=== PATIENT | female | born 2000 | race Caucasian/White ===

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

== ENCOUNTER → 2020-09-19 | Outpatient (CLI) | payer OTHER ==
[~2020-09-19] MED LIST: IMIT100T PO; KEPP10002 PO; PEPC1TAB5 PO
== END ==
LOC: M LABSMTC 08:05
PROVIDERS: ATTEND Anesthesiology
DX: Z01.812 Encounter for preprocedural laboratory examination (principal); Z20.822 Contact with and (suspected) exposure to COVID-19

== ENCOUNTER 2020-09-24 12:53 | Day surgery (SDC) | payer OTHER ==
[~2020-09-24] VITALS: Ht 162.6 cm; Wt 88.0 kg
[~2020-09-24 12:53] MED LIST changes: +LIDOCAINE 2% 100MG/5ML SDV (FOR ANES.) As Ordered ONE; +NS 1,000 ML IV ONE; +fentaNYL 100 MCG/2 ML INJECTION (J3010) As Ordered ONE; +propofoL 200 MG/20 ML VIAL As Ordered ONE
--- OUTSIDE RECORDS SUMMARY | 2020-09-24 12:58 | CCD | Continuity of Care Document ---
Author Author Katelyn CABRERA Organization Unknown Address [address] [facility], [address] [place] [address] Phone [phone] Care Team Providers Care Skin Grader Name Role Phone Daniel Araiza M.D. AUTM [phone] [employer] AUTM [phone] Problems Description No Information Available Social History Type Date Description Comments Sex Unknown ETOH Use Denies alcohol use Tobacco Use Start: Unknown Non Smoker Allergies, Adverse Reactions, Alerts Active Allergies Reaction Severity Comments Date Augmentin 08/20/2020 Medications Active Medications SIG Qnty Indications Ordering Provide r Date Psyllium Fiber 0.52gm Capsules 1 capsule by mouth 1 to 2 times a day with meals and depending on symptoms adjust after 2 weeks 60caps Chidi Cabrera M.D. 2020 Keppra 1000mg Tablets 1tab po bid Unknown Famotidine 20mg Tablets 1t ab po qd 60tabs Unknown Sumatriptan Succinate 100mg Tablet s use as directed Unknown Immunizations Description No Information Available Vital Signs Date Vital Result Comment 08/20/2020 2:16pm BP Systolic 120 mmHg BP Diastolic 74 mmHg Height 64 inches 5'4" Weight 193.00 lb BMI (Body Mass Index) 33.1 kg/m2 [place] Body Weight 120 lb Weight 87.545 kg BSA (Body Surface Area) 1.93 m2 Results Description No Information Available Procedures Description No Information Available Medical Devices Description No Information Available Encounters Description No Information Available Assessments Date Code Description Provider 08/20/2020 R10.13 Epigastric pain Chidi Peguero ala, M.D. Plan of Treatment 08/20/2020 - Chidi Cabrera M.D.* R10.13 Epigastric pain * * Comments:* Possible differentials: Functional Status Description No Information Available Mental Status Description No Information Available Referrals Refer to Reason for Referral Status Appt Date Chidi Cabrera M.D. Left upper abd pain Scheduled 07/21/[address] [place] [address], [address] [place] [address] [phone]
--- OUTSIDE RECORDS SUMMARY | 2020-09-24 13:00 | CCD ---
Author Author [facility] Organization [facility] Address Unknown Phone Unavailable Care Team Providers Care Associate Designer Name Role Phone Eliot RIVAS MD Unavailable Unavailable Eliot RIVAS MD Unavailable Unavailable Eliot RIVAS MD Unavailable Unavailable Eliot RIVAS MD Unavailable Unavailable Eliot RIVAS MD Unavailable Unavailable ARASTUEliot MD Unavailable Unavailable ARASTUEliot MD Unavailable Unavailable ARASTU, Eliot MAHER MD Unavailable Unavailable ARASTU, Eliot MAHER MD Unavailable Unavailable ARASTU, Eliot MAHER MD Unavailable Unavailable ARASTU, Eliot MAHER MD Unavailable Unavailable ARASTUEliot MD Unavailable Unavailable ARASTU, Eliot MAHER MD Unavailable Unavailable ARASTU, Eliot MAHER MD Unavailable Unavailable ARASTU, Eliot MAHER MD Unavailable Unavailable ARASTU, Eliot MAHER MD Unavailable Unavailable ARASTU, Eliot MAHER MD Unavailable Unavailable ARASTU, Eliot MAHER MD Unavailable Unavailable ARASTU, Eliot MAHER MD Unavailable Unavailable ARASTU, Eliot MAHER MD Unavailable Unavailable ARASTU, Eliot MAHER MD Unavailable Unavailable ARASTU, Eliot MAHER MD Unavailable Unavailable ARASTUEliot MD Unavailable Unavailable ARASTU, Eliot MAHER MD Unavailable Unavailable ARASTU, Eliot MAHER MD Unavailable Unavailable ARASTU, Eliot MAHER MD Unavailable Unavailable ARASTU, Eliot MAHER MD Unavailable Unavailable ARASTUEliot MD Unavailable Unavailable ARASTUEliot MD Unavailable Unavailable ARASTUEliot MD Unavailable Unavailable ARASTU, Eliot MAHER MD Unavailable Unavailable ARASTU, Eliot MAHER MD Unavailable Unavailable ARASTUEliot MD Unavailable Unavailable ARASTUEliot MD Unavailable Unavailable ARASTUEliot MD Unavailable Unavailable ARASTUEliot MD Unavailable Unavailable ARASTUEliot MD Unavailable Unavailable ARASTUEliot MD Unavailable Unavailable ARASTUEliot MD Unavailable Unavailable ARASTUEliot MD Unavailable Unavailable ARASTUEliot MD Unavailable Unavailable ARASTUEliot MD Unavailable Unavailable ARASTUEliot MD Unavailable Unavailable ARASTUEliot MD Unavailable Unavailable ARASTUEliot MD Unavailable Unavailable ARASTUEliot MD Unavailable Unavailable ARASTEliot English MD Unavailable Unavailable ARASTUEliot MD Unavailable Unavailable Adams LOMELI MD Unavailable Unavailable Adams LOMELI MD Unavailable Unavailable PARSHALL, A BLAIRE MD Unavailable Unavailable PARSHALL, A BLAIRE MD Unavailable Unavailable PARSHALL, A BLAIRE MD Unavailable Unavailable PARSHALL, A BLAIRE MD Unavailable Unavailable PARSHALL, A BLAIRE MD Unavailable Unavailable PARSHALL, A BLAIRE MD Unavailable Unavailable PARSHALL, A BLAIRE MD Unavailable Unavailable PARSHALL, A BLAIRE MD Unavailable Unavailable PARSHALL, A BLAIRE MD Unavailable Unavailable PARSHALL, A BLAIRE MD Unavailable Unavailable PARSHALL, A BLAIRE MD Unavailable Unavailable PARSHALL, A BLAIRE MD Unavailable Unavailable PARSHALL, A BLAIRE MD Unavailable Unavailable PARSHALL, A BLAIRE MD Unavailable Unavailable PARSHALL, A BLAIRE MD Unavailable Unavailable PARSHALL, A BLAIRE MD Unavailable Unavailable PARSHALL, A BLAIRE MD Unavailable Unavailable PARSHALL, A BLAIRE MD Unavailable Unavailable PARSHALL, A BLAIRE MD Unavailable Unavailable PARSHALL, A BLAIRE MD Unavailable Unavailable PARSHALL, A BLAIRE MD Unavailable Unavailable PARSHALL, A BLAIRE MD Unavailable Unavailable PARSHALL, A BLAIRE MD Unavailable Unavailable PARSHALL, A BLAIRE MD Unavailable Unavailable PARSHALL, A BLAIRE MD Unavailable Unavailable PARSHALL, A BLAIRE MD Unavailable Unavailable Jeter, Rody Raquel PA-C Unavailable Unavailable Jeter, Rody Raquel PA-C Unavailable Unavailable Jeter, Rody Raquel PA-C Unavailable Unavailable Jeter, Rody Raquel PA-C Unavailable Unavailable Jeter, Rody Raquel PA-C Unavailable Unavailable Jeter, Rody Raquel PA-C Unavailable Unavailable Jeter, Rody Raquel PA-C Unavailable Unavailable Jeter, Rody Raquel PA-C Unavailable Unavailable Jeter, Rody Raquel PA-C Unavailable Unavailable Jeter, Rody Raquel PA-C Unavailable Unavailable Jeter, Rody Raquel PA-C Unavailable Unavailable Jeter, Rody Raquel PA-C Unavailable Unavailable Jeter, Rody Raquel PA-C Unavailable Unavailable Jeter, Rody Raquel PA-C Unavailable Unavailable Jeter, Rody Raquel PA-C Unavailable Unavailable Jeter, Rody Raquel PA-C Unavailable Unavailable Jeter, Rody Raquel PA-C Unavailable Unavailable Jeter, Rody Raquel PA-C Unavailable Unavailable Jeter, Rody Raquel PA-C Unavailable Unavailable Jeter, Rody Raquel PA-C Unavailable Unavailable Jeter, Rody Raquel PA-C Unavailable Unavailable Jeter, Rody Raquel PA-C Unavailable Unavailable Jeter, Rody Raquel PA-C Unavailable Unavailable Jaja High NP Unavailable Unavailable Stefan Sierra MD Unavailable Unavailable Stefan Sierra MD Unavailable Unavailable Stefan Sierar MD Unavailable Unavailable Mariela, Stefan Rascon MD Unavailable Unavailable Stefan Sierra MD Unavailable Unavailable Stefan Sierra MD Unavailable Unavailable MarielaStefan walker MD Unavailable Unavailable MarielaStefan walker MD Unavailable Unavailable MarielaStefan walker MD Unavailable Unavailable Mariela, Stefan Rascon MD Unavailable Unavailable Mariela, Stefan Rascon MD Unavailable Unavailable Breslau, Nilo DO Unavailable Unavailable Breslau, Nilo DO Unavailable Unavailable Breslau, Nilo DO Unavailable Unavailable Breslau, Nilo DO Unavailable Unavailable Breslau, Nilo DO Unavailable Unavailable Breslau, Nilo DO Unavailable Unavailable Breslau, Nilo DO Unavailable Unavailable Breslau, Nilo DO Unavailable Unavailable Breslau, Nilo DO Unavailable Unavailable Breslau, Nilo DO Unavailable Unavailable Breslau, Nilo DO Unavailable Unavailable Breslau, Nilo DO Unavailable Unavailable Breslau, Nilo DO Unavailable Unavailable Breslau, Nilo DO Unavailable Unavailable Breslau, Nilo DO Unavailable Unavailable Breslau, Nilo DO Unavailable Unavailable Breslau, Nilo DO Unavailable Unavailable Breslau, Nilo DO Unavailable Unavailable Breslau, Nilo DO Unavailable Unavailable Breslau, Nilo DO Unavailable Unavailable Breslau, Nilo DO Unavailable Unavailable Breslau, Nilo DO Unavailable Unavailable Breslau, Nilo DO Unavailable Unavailable Jone, D Arndy PA Unavailable Unavailable Jone, D Randy PA Unavailable Unavailable Jone, D Randy PA Unavailable Unavailable Jone, D Randy PA Unavailable Unavailable Jone, D Randy PA Unavailable Unavailable Jone, D Randy PA Unavailable Unavailable Jone, D Randy PA Unavailable Unavailable Jone, D Randy PA Unavailable Unavailable Jone, D Randy PA Unavailable Unavailable Jone, D Randy PA Unavailable Unavailable Jone, D Randy PA Unavailable Unavailable Jone, D Randy PA Unavailable Unavailable Jone, D Randy PA Unavailable Unavailable Jone, D Randy PA Unavailable Unavailable Jone, D Randy PA Unavailable Unavailable Jone, D Randy PA Unavailable Unavailable Jone, D Randy PA Unavailable Unavailable Jone, D Randy PA Unavailable Unavailable Jone, D Randy PA Unavailable Unavailable Jone, D Randy PA Unavailable Unavailable Jone, D Randy PA Unavailable Unavailable Doctor Provided, Family PHYS No Family Unavailable U navailable Kiya Jerez MD Unavailable Unavailable Kiya Jerez MD Unavailable Unavailable Kiya Jerez MD Unavailable Unavailable Kiya Jerez MD Unavailable Unavailable Kiya Jerez MD Unavailable Unavailable Kiya Jerez MD Unavailable Unavailable Kiya Jerez MD Unavailable Unavailable Kiya Jerez MD Unavailable Unavailable Kiya Jerez MD Unavailable Unavailable Kiya Jerez MD Unavailable Unavailable Kiya Jerez MD Unavailable Unavailable Kiya Jerez MD Unavailable Unavailable Kiya Jerez MD Unavailable Unavailable Kiya Jerez MD Unavailable Unavailable Kiya Jerez MD Unavailable Unavailable Kiya Jerez MD Unavailable Unavailable Kiya Jerez MD Unavailable Unavailable Kiya Jerez MD Unavailable Unavailable Kiya Jerez MD Unavailable Unavailable Kiya Jerez MD Unavailable Unavailable Kiya Jerez MD Unavailable Unavailable Kiya Jerez MD Unavailable Unavailable Kiya Jerez MD Unavailable Unavailable Kiya Jerez MD Unavailable Unavailable Kiya Jerez MD Unavailable Unavailable Kiya Jerez MD Unavailable Unavailable Kiya Jerez MD Unavailable Unavailable Kiya Jerez MD Unavailable Unavailable Kiya Jerez MD Unavailable Unavailable Kiya Jerez MD Unavailable Unavailable Kiya Jerez MD Unavailable Unavailable Kiya Jerez MD Unavailable Unavailable Kiya Jerez MD Unavailable Unavailable Kiya Jerez MD Unavailable Unavailable Kiya Jerez MD Unavailable Unavailable Kiya Jerez MD Unavailable Unavailable Kiya Jerez MD Unavailable Unavailable Kiya Jerez MD Unavailable Unavailable Kiya Jerez MD Unavailable Unavailable Kiya Jerez MD Unavailable Unavailable Estee Kearney Unavailable Unavailable of L.C[facility] Medicine Occupation Unavailable Unavailable Eliot RIVAS MD Unavailable Unavailable Eliot RIVAS MD Unavailable Unavailable Eliot RIVAS MD Unavailable Unavailable Eliot RIVAS MD Unavailable Unavailable Eliot RIVAS MD Unavailable Unavailable ARASTUEliot MD Unavailable Unavailable ARASTUEliot MD Unavailable Unavailable ARASTUEliot MD Unavailable Unavailable ARASTU, Eliot MAHER MD Unavailable Unavailable ARASTU, Eliot MAHER MD Unavailable Unavailable ARASTU, Eliot MAHER MD Unavailable Unavailable ARASTUEliot MD Unavailable Unavailable ARASTUEliot MD Unavailable Unavailable ARASTU, Eliot MAHER MD Unavailable Unavailable ARASTU, Eliot MAHER MD Unavailable Unavailable ARASTU, Eliot MAHER MD Unavailable Unavailable ARASTU, Eliot MAHER MD Unavailable Unavailable ARASTUEliot MD Unavailable Unavailable ARASTU, Eliot MAHER MD Unavailable Unavailable ARASTU, lEiot MAHER MD Unavailable Unavailable ARASTU, Eliot MAHER MD Unavailable Unavailable ARASTU, Eliot MAHER MD Unavailable Unavailable ARASTU, Eliot MAHER MD Unavailable Unavailable ARASTU, Eliot MAHER MD Unavailable Unavailable ARASTUEliot MD Unavailable Unavailable ARASTU, Eliot MAHER MD Unavailable Unavailable ARASTU, Eliot MAHER MD Unavailable Unavailable ARASTUEliot MD Unavailable Unavailable ARASTUEliot MD Unavailable Unavailable ARASTUEliot MD Unavailable Unavailable ARASTUEliot MD Unavailable Unavailable ARASTU, Eliot MAHER MD Unavailable Unavailable ARASTU, Eliot MAHER MD Unavailable Unavailable ARASTUEliot MD Unavailable Unavailable ARASTUEliot MD Unavailable Unavailable ARASTUEliot MD Unavailable Unavailable ARASTUEliot MD Unavailable Unavailable ARASTUEliot MD Unavailable Unavailable ARASTUEliot MD Unavailable Unavailable ARASTUEliot MD Unavailable Unavailable ARASTUEliot MD Unavailable Unavailable ARASTUEliot MD Unavailable Unavailable ARASTU, Eliot MAHER MD Unavailable Unavailable ARASTUEliot MD Unavailable Unavailable ARASTUEliot MD Unavailable Unavailable ARASTUEliot MD Unavailable Unavailable ARASTUEliot MD Unavailable Unavailable ARASTUEliot MD Unavailable Unavailable Vinod Arroyo MD Unavailable Unavailable Beatriz Cobb Unavailable Unavailable Cobb, Beatriz Jessica PA Unavailable Unavailable Cobb, Beatriz Jessica PA Unavailable Unavailable Cobb, Beatriz Jessica PA Unavailable Unavailable Cobb, Beatriz Jessica PA Unavailable Unavailable Cobb, Beatriz Jessica PA Unavailable Unavailable Cobb, Beatriz Jessica PA Unavailable Unavailable Cobb, Beatriz Jessica PA Unavailable Unavailable Cobb, Beatriz Jessica PA Unavailable Unavailable Cobb, Beatriz Jessica PA Unavailable Unavailable SCHILLING, NEW MELVI MD Unavailable Unavailable SCHILLING, NEW MELVI MD Unavailable Unavailable SCHILLING, NEW MELVI MD Unavailable Unavailable SCHILLING, NEW MELVI MD Unavailable Unavailable SCHILLING, NEW MELVI MD Unavailable Unavailable SCHILLING, NEW MELVI MD Unavailable Unavailable SCHILLING, NEW MELVI MD Unavailable Unavailable SCHILLING, NEW MELVI MD Unavailable Unavailable SCHILLING, NEW MELVI MD Unavailable Unavailable SCHILLING, NEW MELVI MD Unavailable Unavailable SCHILLING, NEW MELVI MD Unavailable Unavailable SCHILLING, NEW MELVI MD Unavailable Unavailable SCHILLING, NEW MELVI MD Unavailable Unavailable SCHILLING, NEW MELVI MD Unavailable Unavailable SCHILLING, NEW MELVI MD Unavailable Unavailable SCHILLING, NEW MELVI MD Unavailable Unavailable SCHILLING, NEW MELVI MD Unavailable Unavailable SCHILLING, NEW MELVI MD Unavailable Unavailable Rangel Porter MD Unavailable Unavailable Re-disclosure Warning The records that you are about to access may contain information from federally-assisted alcohol or drug abuse programs. If such information is present, then the following federally mandated warning applies: This information has been disclosed to you from records protected by federal confidentiality rules (42 CFR part 2). The federal rules prohibit you from making any further disclosure of this information unless further disclosure is expressly permitted by the written consent of the person to whom it pertains or as otherwise permitted by 42 CFR part 2. A general authorization for the release of medical or other information is NOT sufficient for this purpose. The Federal rules restrict any use of the information to criminally investigate or prosecute any alcohol or drug abuse patient.The records that you are about to access may contain highly sensitive health information, the redisclosure of which is protected by Article 27-F of the [facility] Public Health law. If you continue you may have access to information: Regarding HIV / AIDS; Provided by facilities licensed or operated by the [facility] Office of Mental Health; or Provided by the [facility] Office for People With Developmental Disabilities. If such information is present, then the following [facility] mandated warning applies: This information has been disclosed to you from confidential records which are protected by state law. State law prohibits you from making any further disclosure of this information without the specific written consent of the person to whom it pertains, or as otherwise permitted by law. Any unauthorized further disclosure in violation of state law may result in a fine or mcfp sentence or both. A general authorization for the release of medical or other information is NOT sufficient authorization for further disc losure. Allergies and Adverse Reactions Type Description Substance Reaction Status Data Source(s ) Drug allergy amoxicillin Amoxicillin HIVES MO [facility] Drug allergy azithromycin Azithromycin Hives MO [facility] Family History Family Member Name Family Member Gender Family Member Status Date o f Status Description Data Source(s) Unknown Condition [facility] Unknown Condition [facility] Unknown Condition [facility] Unknown Condition [facility] Unknown Condition [facility] Unknown Condition [facility] Unknown [facility] Unknown [facility] Unknown [facility] Unknown [facility] Unknown [facility] Unknown [facility] Unknown [facility] Unknown [facility] Unknown [facility] Unknown [facility] Unknown [facility] Unknown Condition [facility] Unknown Condition [facility] Unknown Condition [facility] Unknown Condition [facility] Unknown Condition [facility] Hospital Encounters Encounter Providers Location Date Indications Data Source(s ) Outpatient Attender: 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 09/01/2020 1 2:00:00 AM EST URBINA/PPD/RESP [facility] URBINA/PPD/RESP Outpatient Attender: Ella Jerez MD 07/20/2020 09:35:[address] [facility] CLINIC Attender: GUNNAR HIGUERA.ES-CARMELB.PEDRO LUIS 06/25/2020 12:00: 00 AM EST [facility] Outpatient Attender: Estee PALENCIA 06/02/2020 12:02:06 AM ED T [facility] Outpatient Attender: MELVI SCHILLING MD 04/01/2020 0 7:47:00 AM EDT F/U SPLEEN,ABCESS OF SPLEEN [facility] F/U SPLEEN,ABCESS [facility] SPLEEN Outpatient Attender: Rangel Porter MDReferrer: Jaja thompson NP 03/17/2020 10:15:00 AM EDT - 03/17/2020 10:53:00 AM EDT [facility] Outpatient Attender: MELVI SCHILLING MD 02/23/2020 1 1:06:[address] [facility] SPLENOMEGALY Outpatient Attender: Rangel Porter MDReferrer: Jaja thompson NP 02/12/2020 09:19:00 AM EDT - 02/12/2020 09:55:00 AM EDT [facility] Outpatient Attender: Rangel Porter MDReferrer: Jaja thompson NP 01/22/2020 09:42:00 AM EDT - 01/22/2020 10:36:00 AM EDT [facility] Outpatient Attender: Rangel Porter MD 01/16/2020 02:34:[address] [facility] PAIN Outpatient Attender: Rangel Porter MDReferrer: No Family Doctor Provided 01/15/2020 09:02:00 AM EDT - 01/15/2020 09:56:[address] [facility] Outpatient Attender: Rangel Porter MD 01/14/2020 0 1:34:00 PM EDT W W/O, LOW ABD PAIN, R/O ABCESS @ INCISION [facility] W W/O, LOW ABD PAIN, R/O ABCESS @ INCI [facility] Outpatient Attender: Rangel Porter MDReferrer: Jaja thompson NP 01/13/2020 01:41:00 PM EDT - 01/13/2020 03:07:00 PM EDT [facility] Outpatient Attender: Rangel Porter MD 01/09/2020 02:00:[address] [facility] R19.7 Outpatient Attender: Rangel Porter MDReferrer: Jaja thompson NP 01/09/2020 11:05:00 AM EDT - 01/09/2020 12:11:00 PM EDT [facility] Outpatient Attender: Rangel Porter MDReferrer: Jaja thompson NP 01/07/2020 03:09:00 PM EDT - 01/07/2020 04:10:00 PM EDT [facility] Emergency Attender: Vinod Arroyo MD Referrer: Rangel Porter MDConsultant: Rangel Porter MD 01/05/2020 04:12:00 PM EDT - 01/05/2020 05:07:00 PM EDT RE-CHECK [facility] RE-CHECK Patient discharged. Emergency Attender: Vinod Arroyo MDConsultant: Rangel Porter MD 01/04/2020 02:36:00 PM EDT - 01/04/2020 05:45:00 PM EDT INFECTION FROM SURGERY [facility] INFECTION FROM SURGERY Patient discharged. Outpatient Attender: Rangel Porter MDReferrer: Jaja thompson NP 01/02/2020 09:10:00 AM EDT - 01/02/2020 09:56:00 AM EDT [facility] Emergency Attender: Abiodun Sierra MD 12/30/19 20 12:01:00 AM EDT - 12/30/2019 02:31:00 AM [facility] Patient discharged. Outpatient Attender: Rangel Porter MD 06:16:00 AM EDT - 12/24/2019 03:10:00 PM EDT R10.2/DX LAPROSCOPY [id number] [facility] R10.2/DX LAPROSCOPY [id number] Patient discharged. Outpatient Attender: Jaja High NPReferrer: Jaja downs NP 12/23/2019 10:46:00 AM EDT - 12/23/2019 11:21:00 AM EDT [facility] Outpatient Attender: Rangel Porter MDConsultant: GUNNAR FLORES MD 12/22/2019 08:06:00 AM EDT R10.2,G40.309 [facility] R10.2,G40.309 Outpatient Attender: Rangel Porter MD 12/21/2019 08:25:[address] [facility] Z01.818 CLINIC SDB.ES-SDB.HM 12/19/2019 08:29:46 AM EDT [facility] CLINIC Attender: GUNNAR HIGUERA.ES-SDB.NS 12/16/2019 12:00: 00 AM EDT [facility] Outpatient Attender: Rangel Porter MDReferrer: Jaja thompson NP 12/03/2019 10:10:00 AM EDT - 12/03/2019 10:45:00 AM EDT [facility] Outpatient Attender: Rangel Porter MD 10/28/2019 1 1:29:00 AM EDT [address] PAIN [facility] PELVIC PAIN Outpatient Attender: Rangel Porter MD 10/16/2019 01:45:[address] [facility] R10.2 Outpatient Attender: Rangel Porter MDReferrer: Jaja thompson NP 10/16/2019 09:43:00 AM EST - 10/16/2019 10:33:00 AM EST [facility] Outpatient<td ID="encounterTypeDescripti onID0">urgent visit</td><td>Raquel Jeter RPA</td><td>[facility]</td><td>10/13/2019</td><td><content ID="encounterDiagnosisID0-0">Temporomandibular Joint Disorder</content></td> [facility] 10/13/2019 10:20:00 AM EST - 10/13/2019 11:32:00 AM EST Temporomandibular Joint Disorder [facility] ([facility]) Temporomandibular Joint Disorder Emergency Attender: BLAIRE LOMELI MD 10/08 03:01:00 PM EST - 10/08/2019 03:41:00 PM EST HEADACHES, LIGHT SENSITIVITY [facility] HEADACHES, LIGHT SENSITIVITY Patient discharged. Outpatient Attender: Jaja High NP 09/23/2019 06:33:[address] [facility] R10.2 Outpatient Attender: Rangel PEREZeferrer: Jaja thompson NP 09/23/2019 03:09:00 PM EST - 09/23/2019 04:14:00 PM EST [facility] Outpatient<td ID="encounterTypeDescripti onID1">urgent visit</td><td>Randy Becerril PA-C</td><td>[facility]</td><td>09/18/2019</td><td><content ID="encounterDiagnosisID1-0">Influenza</content></td> Attender: Randy MORRISON [facility] 09/18/2019 04:42:00 PM EST - 09/18/2019 05:20:00 PM ES T InfluenzaInfluenza [facility] ([facility]) Influenza Influenza Outpatient Attender: Nilo Prater DO 09/16/2019 12:59:00 PM EST [address] PAIN [facility] PELVIC PAIN Outpatient Attender: Nilo Mirzaerrer: Jaja white NP 09/05/2019 03:09:00 PM EST - 09/05/2019 03:53:00 PM EST [facility] Outpatient Attender: Jessica Cobb PAReferrer: Jaja white NP 08/11/2019 01:49:00 PM EST - 08/11/2019 02:09:00 PM EST [facility] Outpatient Attender: Occupation of [employer] 08/11/2019 11:02:0 0 AM EST PRE [facility]PL[facility] PRE EMPLOY Outpatient Attender: Occupation of [employer] 07/02/2019 12:00:0 0 AM EST [facility] PRE EMPLOY Medications Medication Brand Name Start Date Product Form Dose Route Admi nistrative Instructions Pharmacy Instructions Status Indications Reaction Description Data Source(s) Psyllium 520 MG Oral Capsule Psyllium Fiber 08/20/2020 12:00:00 AM EST ORAL active [facility] ([facility], ) 1,000 mg 07/12/2020 12:00:00 AM EST tablet 60 TAKE ONE TABLET BY MOUTH TWICE A DAY TAKE ONE TABLET BY MOUTH TWICE A DAY SOLD: 07/13/2020 [facility] 20 mg 07/12/2020 12:00:00 AM EST tablet 60 TAKE ONE TABLET BY MOUTH TWICE A DAY TAKE ONE TABLET BY MOUTH TWICE A DAY SOLD: 07/13/2020 [facility] 10 mg 07/12/2020 12:00:00 AM EST tablet 10 TAKE ONE TABLET BY MOUTH NEEDED MAXIMUM DAILY DOSE = ONE TABLET TAKE ONE TABLET BY MOUTH NEEDED MAXIMUM DAILY DOSE = ONE TABLET SOLD: 07/13/2020 [facility] 20 mg 07/12/2020 12:00:00 AM EST tablet 30 TAKE ONE TABLET BY MOUTH EVERY DAY TAKE ONE TABLET BY MOUTH EVERY DAY SOLD: 07/13/2020 [facility] Fluconazole 150 MG Oral Tablet Fluconazole 01/15/2020 09:48:34 AM EDT 150 MG completed [facility] Fluconazole 150 MG Oral Tablet Fluconazole 01/15/2020 09:48:34 AM EDT 150 MG completed [facility] Fluconazole 150 MG Oral Tablet Fluconazole 01/15/2020 09:48:34 AM EDT 150 MG completed [facility] Fluconazole 150 MG Oral Tablet Fluconazole 01/15/2020 09:48:34 AM EDT 150 MG active [facility] Clotrimazole 10 MG Oral Lozenge Clotrimazole 01/15/2020 09:43:32 AM E DT 10 MG completed [facility] Clotrimazole 10 MG Oral Lozenge Clotrimazole 01/15/2020 09:43:32 AM E DT 10 MG completed [facility] Clotrimazole 10 MG Oral Lozenge Clotrimazole 01/15/2020 09:43:32 AM E DT 10 MG completed [facility] Clotrimazole 10 MG Oral Lozenge Clotrimazole 01/15/2020 09:43:32 AM E DT 10 MG completed [facility] 10 mg 01/15/2020 12:00:00 AM EDT claudia 25 DISSOLVE 1 TABLET IN MOUTH FIVE TIMES A DAILY FOR 5 DAYS FOR THRUSH DISSOLVE 1 TABLET IN MOUTH FIVE TIMES A DAILY FOR 5 DAYS FOR THRUSH SOLD: 01/16/2020 [facility] Vancomycin 125 MG Oral Capsule Vancomycin 01/09/2020 12:04:19 PM EDT 125 MG completed [facility] Vancomycin 125 MG Oral Capsule Vancomycin 01/09/2020 12:04:19 PM EDT 125 MG completed [facility] Vancomycin 125 MG Oral Capsule Vancomycin 01/09/2020 12:04:19 PM EDT 125 MG completed [facility] Vancomycin 125 MG Oral Capsule Vancomycin 01/09/2020 12:04:19 PM EDT 125 MG completed [facility] Vancomycin 125 MG Oral Capsule Vancomycin 01/09/2020 12:04:19 PM EDT 125 MG completed [facility] Vancomycin 125 MG Oral Capsule Vancomycin 01/09/2020 12:04:19 PM EDT 125 MG [facility] 125 mg 01/09/2020 12:00:00 AM EDT capsule 40 TAKE ONE CAPSULE BY MOUTH FOUR TIMES A DAY FOR 10 DAYS TAKE ONE CAPSULE BY MOUTH FOUR TIMES A DAY FOR 10 DAYS SOLD: 01/09/2020 [facility] Levofloxacin 750 MG Oral Tablet Levofloxacin 01/07/2020 03:51:42 PM EDT 750 MG completed [facility] Levofloxacin 750 MG Oral Tablet Levofloxacin 01/07/2020 03:51:42 PM EDT 750 MG [facility] Levofloxacin 750 MG Oral Tablet Levofloxacin 01/07/2020 03:51:42 PM EDT 750 MG [facility] Levofloxacin 750 MG Oral Tablet Levofloxacin 01/07/2020 03:51:42 PM EDT 750 MG active [facility] Levofloxacin 750 MG Oral Tablet Levofloxacin 01/07/2020 03:51:42 PM EDT 750 MG [facility] Levofloxacin 750 MG Oral Tablet Levofloxacin 01/07/2020 03:51:42 PM EDT 750 MG active [facility] Levofloxacin 750 MG Oral Tablet Levofloxacin 01/07/2020 03:51:42 PM EDT 750 MG [facility] 750 mg 01/07/2020 12:00:00 AM EDT tablet 14 TAKE 1 TABLET BY MOUTH EVERY 24 HOURS FOR 14 DAYS FOR MRSA TAKE 1 TABLET BY MOUTH EVERY 24 HOURS FO R 14 DAYS FOR MRSA SOLD: 01/07/2020 [facility] 300 mg 01/05/2020 12:00:00 AM EDT capsule 84 TAKE TWO CAPSULES BY MOUTH THREE TIMES A DAY FOR 14 DAYS TAKE TWO CAPSULES BY MOUTH THREE TIMES A DAY FOR 14 DAYS SOLD: 01/06/2020 [facility] Clindamycin 300 MG Oral Capsule Clindamycin Hcl Clindamycin Hcl 01/04/2020 05:13:05 PM EDT [address] [facility] Clindamycin 300 MG Oral Capsule Clindamycin Hcl Clindamycin Hcl 01/04/2020 05:13:05 PM EDT [address] [facility] Clindamycin 300 MG Oral Capsule Clindamycin Hcl Clindamycin Hcl 01/04/2020 05:13:05 PM EDT [address] [facility] Clindamycin 300 MG Oral Capsule Clindamycin Hcl Clindamycin Hcl 01/04/2020 05:13:05 PM EDT 600 MG active [facility] Clindamycin 300 MG Oral Capsule Clindamycin Hcl Clindamycin Hcl 01/04/2020 05:13:05 PM EDT [address] [facility] Clindamycin 300 MG Oral Capsule Clindamycin Hcl Clindamycin Hcl 01/04/2020 05:13:05 PM EDT [address] [facility] Clindamycin 300 MG Oral Capsule Clindamycin Hcl Clindamycin Hcl 01/04/2020 05:13:05 PM EDT [address] [facility] Clindamycin 300 MG Oral Capsule Clindamycin Hcl Clindamycin Hcl 01/04/2020 05:13:05 PM EDT 600 MG active [facility] Clindamycin 300 MG Oral Capsule Clindamycin Hcl Clindamycin Hcl 01/04/2020 05:13:05 PM EDT [address] [facility] Fluconazole 150 MG Oral Tablet Fluconazole 01/02/2020 09:52:36 AM EDT 150 MG active [facility] Fluconazole 150 MG Oral Tablet Fluconazole 01/02/2020 09:52:36 AM EDT 150 MG active [facility] Fluconazole 150 MG Oral Tablet Fluconazole 01/02/2020 09:52:36 AM EDT 150 MG active [facility] Fluconazole 150 MG Oral Tablet Fluconazole 01/02/2020 09:52:36 AM EDT 150 MG completed [facility] Fluconazole 150 MG Oral Tablet Fluconazole 01/02/2020 09:52:36 AM EDT 150 MG completed [facility] Fluconazole 150 MG Oral Tablet Fluconazole 01/02/2020 09:52:36 AM EDT 150 MG active [facility] Fluconazole 150 MG Oral Tablet Fluconazole 01/02/2020 09:52:36 AM EDT 150 MG active [facility] Fluconazole 150 MG Oral Tablet Fluconazole 01/02/2020 09:52:36 AM EDT 150 MG completed [facility] Fluconazole 150 MG Oral Tablet Fluconazole 01/02/2020 09:52:36 AM EDT 150 MG completed [facility] Fluconazole 150 MG Oral Tablet Fluconazole 01/02/2020 09:52:36 AM EDT 150 MG completed [facility] Metronidazole 500 MG Oral Tablet Metronidazole 01/02/2020 09:51:45 AM EDT 500 MG completed [facility] Metronidazole 500 MG Oral Tablet Metronidazole 01/02/2020 09:51:45 AM EDT 500 MG completed [facility] Metronidazole 500 MG Oral Tablet Metronidazole 01/02/2020 09:51:45 AM EDT 500 MG completed [facility] Metronidazole 500 MG Oral Tablet Metronidazole 01/02/2020 09:51:45 AM EDT 500 MG active [facility] Metronidazole 500 MG Oral Tablet Metronidazole 01/02/2020 09:51:45 AM EDT 500 MG active [facility] Metronidazole 500 MG Oral Tablet Metronidazole 01/02/2020 09:51:45 AM EDT 500 MG completed [facility] Metronidazole 500 MG Oral Tablet Metronidazole 01/02/2020 09:51:45 AM EDT 500 MG completed [facility] Metronidazole 500 MG Oral Tablet Metronidazole 01/02/2020 09:51:45 AM EDT 500 MG completed [facility] Metronidazole 500 MG Oral Tablet Metronidazole 01/02/2020 09:51:45 AM EDT 500 MG completed [facility] Metronidazole 500 MG Oral Tablet Metronidazole 01/02/2020 09:51:45 AM EDT 500 MG completed [facility] Sulfamethoxazole 800 MG / Trimethoprim 1 60 MG Oral Tablet Sulfamethoxazole-Trimethoprim Sulfamethoxazole-Trimethoprim 01/02/2020 09:51:44 AM EDT 1 TAB completed [facility] Sulfamethoxazole 800 MG / Trimethoprim 1 60 MG Oral Tablet Sulfamethoxazole-Trimethoprim Sulfamethoxazole-Trimethoprim 01/02/2020 09:51:44 AM EDT 1 TAB completed [facility] Sulfamethoxazole 800 MG / Trimethoprim 1 60 MG Oral Tablet Sulfamethoxazole-Trimethoprim Sulfamethoxazole-Trimethoprim 01/02/2020 09:51:44 AM EDT 1 TAB completed [facility] Sulfamethoxazole 800 MG / Trimethoprim 1 60 MG Oral Tablet Sulfamethoxazole- Trimethoprim (Bactrim Ds) 800-160 mg tablet Sulfamethoxazole-Trimethoprim (Bactrim Ds) 800-160 mg tablet 01/02/2020 09:51:44 AM EDT 1 TAB completed [facility] Sulfamethoxazole 800 MG / Trimethoprim 1 60 MG Oral Tablet Sulfamethoxazole-Trimethoprim Sulfamethoxazole-Trimethoprim 01/02/2020 09:51:44 AM EDT 1 TAB completed [facility] Sulfamethoxazole 800 MG / Trimethoprim 1 60 MG Oral Tablet Sulfamethoxazole-Trimethoprim Sulfamethoxazole-Trimethoprim 01/02/2020 09:51:44 AM EDT 1 TAB active [facility] Sulfamethoxazole 800 MG / Trimethoprim 1 60 MG Oral Tablet Sulfamethoxazole-Trimethoprim Sulfamethoxazole-Trimethoprim 01/02/2020 09:51:44 AM EDT 1 TAB active [facility] Sulfamethoxazole 800 MG / Trimethoprim 1 60 MG Oral Tablet Sulfamethoxazole-Trimethoprim Sulfamethoxazole-Trimethoprim 01/02/2020 09:51:44 AM EDT 1 TAB completed [facility] Sulfamethoxazole 800 MG / Trimethoprim 1 60 MG Oral Tablet Sulfamethoxazole-Trimethoprim Sulfamethoxazole-Trimethoprim 01/02/2020 09:51:44 AM EDT 1 TAB completed [facility] Sulfamethoxazole 800 MG / Trimethoprim 1 60 MG Oral Tablet Sulfamethoxazole- Trimethoprim (Bactrim Ds) 800-160 mg tablet Sulfamethoxazole-Trimethoprim (Bactrim Ds) 800-160 mg tablet 01/02/2020 09:51:44 AM EDT 1 TAB completed [facility] 500 mg 01/02/2020 12:00:00 AM EDT tablet 28 TAKE ONE TABLET BY MOUTH TWICE A DAY FOR 14 DAYS TAKE ONE TABLET BY MOUTH TWICE A DAY FOR 14 DAYS SOLD: 01/02/2020 [facility] 150 mg 01/02/2020 12:00:00 AM EDT tablet 4 TAKE 1 TABLET BY MOUTH EVERY WEEK FOR 4 WEEKS FOR YEAST TAKE 1 TABLET BY MOUTH EVERY WEEK FOR 4 WEEKS FOR YEAS T SOLD: 01/02/2020 [facility] Cephalexin 500 MG Oral Capsule [Keflex] Cephalexin 12/30/2019 01: 50:39 AM EDT 500 MG completed [facility] Cephalexin 500 MG Oral Capsule [Keflex] Cephalexin 12/30/2019 01: 50:39 AM EDT 500 MG completed [facility] Cephalexin 500 MG Oral Capsule [Keflex] Cephalexin 12/30/2019 01: 50:39 AM EDT 500 MG completed [facility] Sulfamethoxazole 800 MG / Trimethoprim 1 60 MG Oral Tablet Sulfamethoxazole- Trimethoprim (Bactrim Ds) 800-160 mg tablet Sulfamethoxazole-Trimethoprim (Bactrim Ds) 800-160 mg tablet 12/30/2019 01:50:39 AM EDT 1 TAB completed [facility] Sulfamethoxazole 800 MG / Trimethoprim 1 60 MG Oral Tablet Sulfamethoxazole-Trimethoprim Sulfamethoxazole-Trimethoprim 12/30/2019 01:50:39 AM EDT 1 TAB completed [facility] Cephalexin 500 MG Oral Capsule [Keflex] Cephalexin 12/30/2019 01: 50:39 AM EDT 500 MG completed [facility] Sulfamethoxazole 800 MG / Trimethoprim 1 60 MG Oral Tablet Sulfamethoxazole-Trimethoprim Sulfamethoxazole-Trimethoprim 12/30/2019 01:50:39 AM EDT 1 TAB completed [facility] Cephalexin 500 MG Oral Capsule [Keflex] Cephalexin 12/30/2019 01: 50:39 AM EDT 500 MG completed [facility] Sulfamethoxazole 800 MG / Trimethoprim 1 60 MG Oral Tablet Sulfamethoxazole-Trimethoprim Sulfamethoxazole-Trimethoprim 12/30/2019 01:50:39 AM EDT 1 TAB completed [facility] Cephalexin 500 MG Oral Capsule [Keflex] Cephalexin 12/30/2019 01: 50:39 AM EDT 500 MG active [facility] Sulfamethoxazole 800 MG / Trimethoprim 1 60 MG Oral Tablet Sulfamethoxazole-Trimethoprim Sulfamethoxazole-Trimethoprim 12/30/2019 01:50:39 AM EDT 1 TAB completed [facility] Cephalexin 500 MG Oral Capsule [Keflex] Cephalexin (Ke flex) 500 mg capsule Cephalexin (Keflex) 500 mg capsule 12/30/2019 01:50:39 AM EDT 500 MG completed [facility] Sulfamethoxazole 800 MG / Trimethoprim 1 60 MG Oral Tablet Sulfamethoxazole-Trimethoprim Sulfamethoxazole-Trimethoprim 12/30/2019 01:50:39 AM EDT 1 TAB completed [facility] Sulfamethoxazole 800 MG / Trimethoprim 1 60 MG Oral Tablet Sulfamethoxazole- Trimethoprim (Bactrim Ds) 800-160 mg tablet Sulfamethoxazole-Trimethoprim (Bactrim Ds) 800-160 mg tablet 12/30/2019 01:50:39 AM EDT 1 TAB completed [facility] Cephalexin 500 MG Oral Capsule [Keflex] Cephalexin 12/30/2019 01: 50:39 AM EDT 500 MG completed [facility] Sulfamethoxazole 800 MG / Trimethoprim 1 60 MG Oral Tablet Sulfamethoxazole-Trimethoprim Sulfamethoxazole-Trimethoprim 12/30/2019 01:50:39 AM EDT 1 TAB completed [facility] Cephalexin 500 MG Oral Capsule [Keflex] Cephalexin 12/30/2019 01: 50:39 AM EDT 500 MG completed [facility] Sulfamethoxazole 800 MG / Trimethoprim 1 60 MG Oral Tablet Sulfamethoxazole-Trimethoprim Sulfamethoxazole-Trimethoprim 12/30/2019 01:50:39 AM EDT 1 TAB completed [facility] Sulfamethoxazole 800 MG / Trimethoprim 1 60 MG Oral Tablet Sulfamethoxazole-Trimethoprim Sulfamethoxazole-Trimethoprim 12/30/2019 01:50:39 AM EDT 1 TAB completed [facility] Cephalexin 500 MG Oral Capsule [Keflex] Cephalexin (Ke flex) 500 mg capsule Cephalexin (Keflex) 500 mg capsule 12/30/2019 01:50:39 AM EDT 500 MG completed [facility] Cephalexin 500 MG Oral Capsule [Keflex] Cephalexin 12/30/2019 01: 50:39 AM EDT 500 MG completed [facility] Sulfamethoxazole 800 MG / Trimethoprim 1 60 MG Oral Tablet Sulfamethoxazole-Trimethoprim Sulfamethoxazole-Trimethoprim 12/30/2019 01:50:39 AM EDT 1 TAB active [facility] 500 mg 12/30/2019 12:00:00 AM EDT capsule 30 TAKE ONE CAPSULE BY MOUTH THREE TIMES A DAY TAKE ONE CAPSULE BY MOUTH THREE TIMES A DAY SOLD: 12/30/2019 [facility] 800-160 mg 12/30/2019 12:00:00 AM EDT tablet 20 TAKE ONE TABLET BY MOUTH EVERY 12 HOURS FOR TEN DAYS TAKE ONE TABLET BY MOUTH EVERY 12 HOURS FOR TEN DAYS SOLD: 12/30/2019 [facility] 800 mg 12/25/2019 12:00:00 AM EDT tablet 40 TAKE ONE TABLET BY MOUTH EVERY 8 HOURS NEEDED FOR MODERATE PAIN (SCORE 4-6/10) TAKE ONE TABLET BY MOUTH EVERY 8 HOURS NEEDED FOR MODERATE PAIN (SCORE 4-6/10) SOLD: 12/30/2019 [facility] Acetaminophen 325 MG / Oxycodone Hydroch loride 5 MG Oral Tablet Oxycodone-Acetaminophen Oxycodone-Acetaminophen 12/24/2019 02:54:07 PM EDT 2 TAB completed [facility] Ibuprofen 800 MG Oral Tablet Ibuprofen 12/24/2019 02:54:07 PM EDT 800 MG active [facility] Acetaminophen 325 MG / Oxycodone Hydroch loride 5 MG Oral Tablet Oxycodone-Acetaminophen Oxycodone-Acetaminophen 12/24/2019 02:54:07 PM EDT 2 TAB completed [facility] Acetaminophen 325 MG / Oxycodone Hydroch loride 5 MG Oral Tablet Oxycodone-Acetaminophen Oxycodone-Acetaminophen 12/24/2019 02:54:07 PM EDT 2 TAB active [facility] Acetaminophen 325 MG / Oxycodone Hydroch loride 5 MG Oral Tablet Oxycodone-Acetaminophen Oxycodone-Acetaminophen 12/24/2019 02:54:07 PM EDT 2 TAB active [facility] Ibuprofen 800 MG Oral Tablet Ibuprofen 12/24/2019 02:54:07 PM EDT 800 MG active [facility] Acetaminophen 325 MG / Oxycodone Hydroch loride 5 MG Oral Tablet Oxycodone-Acetaminophen Oxycodone-Acetaminophen 12/24/2019 02:54:07 PM EDT 2 TAB completed [facility] Ibuprofen 800 MG Oral Tablet Ibuprofen 12/24/2019 02:54:07 PM EDT 800 MG active [facility] Ibuprofen 800 MG Oral Tablet Ibuprofen 12/24/2019 02:54:07 PM EDT 800 MG active [facility] Ibuprofen 800 MG Oral Tablet Ibuprofen 12/24/2019 02:54:07 PM EDT 800 MG active [facility] Acetaminophen 325 MG / Oxycodone Hydroch loride 5 MG Oral Tablet Oxycodone-Acetaminophen Oxycodone-Acetaminophen 12/24/2019 02:54:07 PM EDT 2 TAB active [facility] Acetaminophen 325 MG / Oxycodone Hydroch loride 5 MG Oral Tablet Oxycodone-Acetaminophen Oxycodone-Acetaminophen 12/24/2019 02:54:07 PM EDT 2 TAB active [facility] Acetaminophen 325 MG / Oxycodone Hydroch loride 5 MG Oral Tablet Oxycodone-Acetaminophen Oxycodone-Acetaminophen 12/24/2019 02:54:07 PM EDT 2 TAB active [facility] Ibuprofen 800 MG Oral Tablet Ibuprofen 12/24/2019 02:54:07 PM EDT 800 MG active [facility] Ibuprofen 800 MG Oral Tablet Ibuprofen 12/24/2019 02:54:07 PM EDT 800 MG active [facility] Ibuprofen 800 MG Oral Tablet Ibuprofen 12/24/2019 02:54:07 PM EDT 800 MG active [facility] Acetaminophen 325 MG / Oxycodone Hydroch loride 5 MG Oral Tablet Oxycodone-Acetaminophen Oxycodone-Acetaminophen 12/24/2019 02:54:07 PM EDT 2 TAB active [facility] Acetaminophen 325 MG / Oxycodone Hydroch loride 5 MG Oral Tablet Oxycodone-Acetaminophen Oxycodone-Acetaminophen 12/24/2019 02:54:07 PM EDT 2 TAB active [facility] Ibuprofen 800 MG Oral Tablet Ibuprofen 12/24/2019 02:54:07 PM EDT 800 MG active [facility] Acetaminophen 325 MG / Oxycodone Hydroch loride 5 MG Oral Tablet Oxycodone-Acetaminophen Oxycodone-Acetaminophen 12/24/2019 02:54:07 PM EDT 2 TAB active [facility] Ibuprofen 800 MG Oral Tablet Ibuprofen 12/24/2019 02:54:07 PM EDT 800 MG active [facility] Ibuprofen 800 MG Oral Tablet Ibuprofen 12/24/2019 02:54:07 PM EDT 800 MG active [facility] Ibuprofen 800 MG Oral Tablet Ibuprofen 12/24/2019 02:54:07 PM EDT 800 MG active [facility] Acetaminophen 325 MG / Oxycodone Hydroch loride 5 MG Oral Tablet Oxycodone-Acetaminophen Oxycodone-Acetaminophen 12/24/2019 02:54:07 PM EDT 2 TAB active [facility] 5-325 mg 12/24/2019 12:00:00 AM EDT tablet 30 TAKE TWO TABLETS BY MOUTH EVERY 4 HOURS NEEDED FOR SEVERE PAIN (SCORE 7-10/10) MAXIMUM DAILY DOSE = 8 TABLETS TAKE TWO TABLETS BY MOUTH EVERY 4 HOURS NEEDED FOR SEVERE PAIN (SCORE 7-10/10) MAXIMUM DAILY DOSE = 8 TABLETS SOLD: 12/24/2019 [facility] 10 mg 12/16/2019 12:00:00 AM EDT tablet 10 TAKE ONE TABLET BY MOUTH ONCE NEEDED MAXIMUM DAILY DOSE = ONE TABLET TAKE ONE TABLET BY MOUTH ONCE NEEDED MAXIMUM DAILY DOSE = ONE TABLET SOLD: 12/18/2019 [facility] 20 mg 12/16/2019 12:00:00 AM EDT tablet 30 TAKE ONE TABLET BY MOUTH EVERY DAY TAKE ONE TABLET BY MOUTH EVERY DAY SOLD: 12/18/2019 [facility] 1,000 mg 12/16/2019 12:00:00 AM EDT tablet 60 TAKE ONE TABLET BY MOUTH TWICE A DAY TAKE ONE TABLET BY MOUTH TWICE A DAY SOLD: 12/18/2019 [facility] Prednisone 20 MG Oral Tablet predniSONE 20 MG Oral Tab let predniSONE 20 MG Oral Tablet 10/13/2019 12:00:00 AM EST active Prednisone 20 MG Oral Tablet [facility] ([facility]) 20 mg 10/13/2019 12:00:00 AM EST tablet 15 TAKE DIRECTED , 3 TABLETS BY MOUTH ONCE DAILY FOR 5 DAYS TAKE DIRECTED , 3 TABLETS BY MOUTH ON CE DAILY FOR 5 DAYS SOLD: 10/13/2019 [facility] Fluconazole 150 MG Oral Tablet Fluconazole 09/23/2019 04:40:33 PM EST 150 MG completed [facility] Fluconazole 150 MG Oral Tablet Fluconazole 09/23/2019 04:40:33 PM EST 150 MG completed [facility] Fluconazole 150 MG Oral Tablet Fluconazole 09/23/2019 04:40:33 PM EST 150 MG active [facility] Fluconazole 150 MG Oral Tablet Fluconazole 09/23/2019 04:40:33 PM EST 150 MG completed [facility] Fluconazole 150 MG Oral Tablet Fluconazole 09/23/2019 04:40:33 PM EST 150 MG completed [facility] Fluconazole 150 MG Oral Tablet Fluconazole 09/23/2019 04:40:33 PM EST 150 MG completed [facility] Fluconazole 150 MG Oral Tablet Fluconazole 09/23/2019 04:40:33 PM EST 150 MG completed [facility] Fluconazole 150 MG Oral Tablet Fluconazole 09/23/2019 04:40:33 PM EST 150 MG completed [facility] Fluconazole 150 MG Oral Tablet Fluconazole 09/23/2019 04:40:33 PM EST 150 MG completed [facility] Fluconazole 150 MG Oral Tablet Fluconazole 09/23/2019 04:40:33 PM EST 150 MG completed [facility] Fluconazole 150 MG Oral Tablet Fluconazole 09/23/2019 04:40:33 PM EST 150 MG active [facility] Fluconazole 150 MG Oral Tablet Fluconazole 09/23/2019 04:40:33 PM EST 150 MG completed [facility] Fluconazole 150 MG Oral Tablet Fluconazole 09/23/2019 04:40:33 PM EST 150 MG completed [facility] Fluconazole 150 MG Oral Tablet Fluconazole 09/23/2019 04:40:33 PM EST 150 MG completed [facility] Fluconazole 150 MG Oral Tablet Fluconazole 09/23/2019 04:40:33 PM EST 150 MG completed [facility] Fluconazole 150 MG Oral Tablet Fluconazole 09/23/2019 04:40:33 PM EST 150 MG completed [facility] doxycycline hyclate 100 MG Oral Capsule Doxycycline Hyclate Doxycycline Hyclate 09/23/2019 04:37:01 PM EST [address] [facility] doxycycline hyclate 100 MG Oral Capsule Doxycycline Hyclate Doxycycline Hyclate 09/23/2019 04:37:01 PM EST [address] [facility] doxycycline hyclate 100 MG Oral Capsule Doxycycline Hyclate Doxycycline Hyclate 09/23/2019 04:37:01 PM EST [address] [facility] doxycycline hyclate 100 MG Oral Capsule Doxycycline Hyclate Doxycycline Hyclate 09/23/2019 04:37:01 PM EST [address] [facility] doxycycline hyclate 100 MG Oral Capsule Doxycycline Hyclate Doxycycline Hyclate 09/23/2019 04:37:01 PM EST [address] [facility] doxycycline hyclate 100 MG Oral Capsule Doxycycline Hyclate Doxycycline Hyclate 09/23/2019 04:37:01 PM EST [address] [facility] doxycycline hyclate 100 MG Oral Capsule Doxycycline Hyclate Doxycycline Hyclate 09/23/2019 04:37:01 PM EST [address] [facility] doxycycline hyclate 100 MG Oral Capsule Doxycycline Hyclate Doxycycline Hyclate 09/23/2019 04:37:01 PM EST [address] [facility] doxycycline hyclate 100 MG Oral Capsule Doxycycline Hyclate Doxycycline Hyclate 09/23/2019 04:37:01 PM EST [address] [facility] doxycycline hyclate 100 MG Oral Capsule Doxycycline Hyclate Doxycycline Hyclate 09/23/2019 04:37:01 PM EST [address] [facility] doxycycline hyclate 100 MG Oral Capsule Doxycycline Hyclate Doxycycline Hyclate 09/23/2019 04:37:01 PM EST [address] [facility] doxycycline hyclate 100 MG Oral Capsule Doxycycline Hyclate Doxycycline Hyclate 09/23/2019 04:37:01 PM EST [address] [facility] doxycycline hyclate 100 MG Oral Capsule Doxycycline Hyclate Doxycycline Hyclate 09/23/2019 04:37:01 PM EST [address] [facility] doxycycline hyclate 100 MG Oral Capsule Doxycycline Hyclate Doxycycline Hyclate 09/23/2019 04:37:01 PM EST [address] [facility] doxycycline hyclate 100 MG Oral Capsule Doxycycline Hyclate Doxycycline Hyclate 09/23/2019 04:37:01 PM EST [address] [facility] doxycycline hyclate 100 MG Oral Capsule Doxycycline Hyclate Doxycycline Hyclate 09/23/2019 04:37:01 PM EST 100 MG [facility] 150 mg 09/23/2019 12:00:00 AM EST tablet 2 TAKE 1 TABLET BY MOUTH ONCE A WEEK IF NEEDED TAKE 1 TABLET BY MOUTH ONCE A WEEK IF NEEDED SOLD: 09/24/2019 [facility] 100 mg 09/23/2019 12:00:00 AM EST capsule 28 TAKE ONE CAPSULE BY MOUTH TWICE A DAY FOR 14 DAYS TAKE ONE CAPSULE BY MOUTH TWICE A DAY FOR 14 DAYS SOLD : 09/24/2019 [facility] Paroxetine Hcl 07/03/2019 12:16:32 AM EST [address] [facility] Paroxetine Hcl 07/03/2019 12:16:32 AM EST [address] [facility] Paroxetine Hcl 07/03/2019 12:16:32 AM EST [facility] Paroxetine Hcl 07/03/2019 12:16:32 AM EST [facility] Paroxetine Hcl 07/03/2019 12:16:32 AM EST [facility] Paroxetine Hcl 07/03/2019 12:16:32 AM EST [facility] Paroxetine Hcl 07/03/2019 12:16:32 AM EST [facility] Paroxetine Hcl 07/03/2019 12:16:32 AM EST [facility] Paroxetine Hcl 07/03/2019 12:16:32 AM EST [facility] Paroxetine Hcl 07/03/2019 12:16:32 AM EST [facility] Paroxetine Hcl 07/03/2019 12:16:32 AM EST [facility] [facility] Paroxetine Hcl 07/03/2019 12:16:32 AM EST [facility] Paroxetine Hcl 07/03/2019 12:16:32 AM EST [facility] Paroxetine Hcl 07/03/2019 12:16:32 AM EST [facility] Paroxetine Hcl 07/03/2019 12:16:32 AM EST [facility] Paroxetine Hcl 07/03/2019 12:16:32 AM EST [facility] Paroxetine Hcl 07/03/2019 12:16:32 AM EST [facility] Paroxetine Hcl 07/03/2019 12:16:32 AM EST [facility] Insurance Providers Payer name Policy type / Coverage type Policy ID Covered green party ID Covered green party's relationship to samuels Policy Samuels Plan Information [facility] [id number] SP [id number] [place] MEDICAID [id number] Self 7 [id number] [facility] [id number] Self [id number] [facility] [phone]) [id number] MEDICAID (101) [id number] [facility] [id number] Patient [id number] SPECIAL ACCOUNT (8) UNAVAILABLE UNAVAILABLE JEN[facility]FFER MEDICAID [id number] Barbara 7 [id number] [place] [id number] S [id number] D Managed Care [place] P UNAVAILABLE S UNAVAILABLE Medicaid Dental S UNAVAILABLE S UN AVAILABLE MEDICAID M [id number] Self [id number] EXCELLUS I [id number] Self [id number] MEDICAID REF AMBULAT W [id number] S [id number] BLUE CHOICE OPTION O [id number] S [id number] MEDICAID [id number] PT [id number] HMOBLUE MEDICAID [id number] PT [id number] COMM MISSING INFO MISSING INFO PT MISSING INFO MEDICAID W [id number] Problems, Conditions, and Diagnoses Code Display Name Description Problem Type Effective Dates Data Source(s) F41.9 Anxiety disorder, unspecified Anxiety disorder, unspec ified Diagnosis 06/25/2020 09:00:02 AM EST [facility] G43.009 Migraine without aura, not intractable, without status migrainosus Migraine without aura, not intractable, Diagnosis 06/25/2020 09:00:02 AM EST [facility] 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 Plain chest X-ray (procedure) 02/23/2020 11:45:00 AM E [facility] Pelvic echography (procedure) 01/16/2020 03:08:00 PM E [facility] Pelvic echography (procedure) 01/16/2020 03:08:00 PM E [facility] Pelvic echography (procedure) 01/16/2020 03:08:00 PM E [facility] Computed tomography of abdomen and pelvis with contrast (pro cedure) 01/14/2020 03:26:00 PM EDT [facility] Computed tomography of abdomen and pelvis with contrast (pro cedure) 01/14/2020 03:26:00 PM EDT [facility] Computed tomography of abdomen and pelvis with contrast (pro cedure) 01/14/2020 03:26:00 PM EDT [facility] Computed tomography of abdomen and pelvis with contrast (pro cedure) 01/14/2020 03:26:00 PM [facility] Nucleic acid assay (procedure) 01/09/2020 12:00:00 AM [facility] Nucleic acid assay (procedure) 01/09/2020 12:00:00 AM [facility] Nucleic acid assay (procedure) 01/09/2020 12:00:00 AM [facility] Nucleic acid assay (procedure) 01/09/2020 12:00:00 AM [facility] Nucleic acid assay (procedure) 01/09/2020 12:00:00 AM [facility] Computed tomography of abdomen and pelvis with contrast (pro cedure) 01/04/2020 03:36:00 PM [facility] Computed tomography of abdomen and pelvis with contrast (pro cedure) 01/04/2020 03:36:00 PM [facility] Computed tomography of abdomen and pelvis with contrast (pro cedure) [facility] with contrast (pro cedure) 01/04/2020 03:36:00 PM [facility] Computed tomography of abdomen and pelvis with contrast (pro cedure) 01/04/2020 03:36:00 PM EDT [facility] Computed tomography of abdomen and pelvis with contrast (pro cedure) 01/04/2020 03:36:00 PM [facility] Computed tomography of abdomen and pelvis with contrast (pro cedure) [facility] of [facility] and [facility] with contrast (pro cedure) [facility] of [facility] and pelvis with contrast (pro cedure) 01/04/2020 03:36:00 PM [facility] Blood culture for bacteria, including anaerobic screen (proc edure) 01/04/2020 12:00:00 AM [facility] Aerobic microbial culture (procedure) 01/04/2020 12:00 :00 AM [facility] Blood culture for bacteria, including anaerobic screen (proc edure) 01/04/2020 12:00:00 AM [facility] Aerobic microbial culture (procedure) 01/04/2020 12:00 :00 AM [facility] Blood culture for bacteria, including anaerobic screen (proc edure) 01/04/2020 12:00:00 AM [facility] Aerobic microbial culture (procedure) 01/04/2020 12:00 :00 AM [facility] Blood culture for bacteria, including anaerobic screen (proc edure) 01/04/2020 12:00:00 AM [facility] Aerobic microbial culture (procedure) 01/04/2020 12:00 :00 AM [facility] Blood culture for bacteria, including anaerobic screen (proc edure) 01/04/2020 12:00:00 AM [facility] Aerobic microbial culture (procedure) 01/04/2020 12:00 :00 AM [facility] Blood culture for bacteria, including anaerobic screen (proc edure) 01/04/2020 12:00:00 AM [facility] Aerobic microbial culture (procedure) 01/04/2020 12:00 :00 AM [facility] Blood culture for bacteria, including anaerobic screen (proc edure) 01/04/2020 12:00:00 AM [facility] Aerobic microbial culture (procedure) 01/04/2020 12:00 :00 AM [facility] Aerobic microbial culture (procedure) 01/04/2020 12:00 :00 AM [facility] Blood culture for bacteria, including anaerobic screen (proc edure) 01/04/2020 12:00:00 AM [facility] Wound Culture 01/04/2020 12:00:00 AM [facility] Blood Culture 01/04/2020 12:00:00 AM [facility] Blood culture for bacteria, including anaerobic screen (proc edure) 12/30/2019 12:00:00 AM [facility] Blood culture for bacteria, including anaerobic screen (proc edure) 12/30/2019 12:00:00 AM EDT [facility] Blood culture for bacteria, including anaerobic screen (proc edure) 12/30/2019 12:00:00 AM EDT [facility] Blood culture for bacteria, including anaerobic screen (proc edure) 12/30/2019 12:00:00 AM EDT [facility] Blood culture for bacteria, including anaerobic screen (proc edure) 12/30/2019 12:00:00 AM EDT [facility] Blood culture for bacteria, including anaerobic screen (proc edure) 12/30/2019 12:00:00 AM EDT [facility] Blood culture for bacteria, including anaerobic screen (proc edure) 12/30/2019 12:00:00 AM EDT [facility] Blood culture for bacteria, including anaerobic screen (proc edure) 12/30/2019 12:00:00 AM EDT [facility] Blood culture for bacteria, including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 the area where glue was applied up to about 2 cm from the wound, periumbilical and in both lower quadrants. Patient states she had the same problem,after she had a gallbladder taken out by laparoscopy, she thinks she is allergic to the glue that isput on the skin. Midline infraumbilical scar looks intact. Patient states she was seen in the ED at [facility], and was given Keflex twice daily for the skin infection. She is allergic to Augmentin. 2 days ago she saw her PCP, who put her on Bactrim DS. No other complaints. Laparoscopy: diagnostic laparoscopy (Showed mild endometriosis and pelvic engorgement.) Interim complaints/symptoms: Denies fever(s) or nausea Review of Systems Const Denies anorexia, Denies fatigue, Denies fever(s), Denies weight gain and Denies weight loss ENT Denies dysphagia GI Denies abdominal pain, Denies change in bowel habits, Denies dysphagia, Denies early satiety, Deniesheartburn, Denies diarrhea, Denies nausea and Denies vomiting Endo Denies fatigue Exam Const General: cooperative, healthy appearing, no acute distress, well developed and well groomed Nutritional Appearance: well nourished Orientation: alert, awake and oriented x 3 HENMT Head: normal to inspection, normocephalic and atraumatic Ears: hearing grossly normal bilaterally and external ears normal General nose exam: external nose normal, nares normal, septum normal and no nasal discharge Face and sinus: normal facial exam Mouth: oral mucosae normal, lip normal, tongue normal and moist mucous membranes GI Inspection: Yes normal to inspection and Yes incision (Skin around abdominal incisions, look erythematous in areas where glue was applied. Incisions intact.) Palpation: soft, no hepatosplenomegaly and nontender Percussion: normal to percussion Auscultation: normal bowel sounds Assessment Plan Assessment Plan (1) Encounter for postoperative wound care: Code(s): Z48.89 - Encounter for other specified surgical aftercare Plan - Rangel Porter MD: 1. Wound infection: To continue on Bactrim DS, Flagyl 500 mg twice daily for 14 days. 2. To clean the wounds with normal saline solution and 4 x 4 dailytwice daily. 3. To return to office in 4 days to assess wound. Orders Other Medications: New: metronidazole 500 mg PO BID 14 days 28 tabs 1RF fluconazole 150 mg PO QWEEK 4 weeks 4 tabs 2RF yeast Refilled: sulfamethoxazole-trimethoprim 800-160 mg (Bactrim DS) 1 tab PO Q12HR 10 days 20 tabs 0RF Discontinued: cephalexin (Keflex) Discontinued Reason: Order 500 mg PO TID 30 caps 0RF Follow Up: 5 Days Electronically Signed By: <Electronically signed by Rangel Porter MD> Date/Time Signed: 01/02/20 1024 Name Value Range Interpretation Code Description Data Adelina rce(s) Supporting Document(s) ID Date Data Source [id number] 12/30/2019 01:42:[address] [facility] @12/30/19 0130: MANUAL DIFF added. RFLXG = DIFF. @ DID THE CONTROL BAND APPEAR? Y@ DID TH E BACKGROUND CLEAR? Y Special Instructions: Lab may order repe at test if initial test elevatedPhysician If elevated, reflex second test in 4-6 hrs @12/30/19 0130: MANUAL DIFF added. RFLXG = DIFF. Name Value Range Interpretation Code Description Data Adelina rce(s) Supporting Document(s) Leukocytes [#/volume] in Blood by Automated count 15.5 10*3/uL 4.45-10.[address] [facility] Erythrocytes [#/volume] in Blood by Automated count 4.77 10*6/uL 4.20 -5.[address] [facility] Hemoglobin [Moles/volume] in Blood 13.8 g/dL 10.7-15.[address] [facility] Hematocrit [Volume Fraction] of Blood by Automated count 40.5 % 3 7-[address] [facility] Erythrocyte mean corpuscular volume [Ent itic volume] in Cord blood by Automated count 84.9 fL 80-96 [facility] Erythrocyte mean corpuscular hemoglobin [Entitic mass] by Automated count 28.9 pg 27[facility] mean corpuscular hemoglobin concentration [Mass/volume] in Cord blood 34.1 g/dL 33-37 [address] [facility] Erythrocyte distribution width [Entitic volume] by Automated count 13 % 11-[address] [facility] Platelets [#/volume] in Blood by Automated count 244 10*3/uL 130-[address] [facility] Platelet mean volume [Entitic volume] in Blood 9.0 fL 9.1-13. [address] [facility] Neutrophils/100 leukocytes in Blood by Automated count 77.9 % 41-[address] [facility] Neutrophils [#/volume] in Blood by Automated count 12.1 U 1.7-7.[address] [facility] Lymphocytes/100 leukocytes in Blood by Automated count 12.1 % 14-[address] [facility] Lymphocytes [#/volume] in Blood by Automated count 1.9 U 0.6-4.[address] [facility] Monocytes/100 leukocytes in Blood by Automated count 7.9 % 4-[address] [facility] Monocytes [#/volume] in Blood by Automated count 1.2 U 0.2-1.2 [facility] Eosinophils/100 leukocytes in Blood by Automated count 1.6 % 0-[address] [facility] Eosinophils [#/volume] in Blood by Automated count 0.3 U 0.0-0.[address] [facility] Basophils/100 leukocytes in Blood by Automated count 0.1 % 0.4-1.[address] [facility] Basophils [#/volume] in Blood by Automated count 0.0 U 0.0-0.[address] [facility] NUCLEATED RED BLOOD CELL 0 % [facility] NUCLEATED RED BLOOD CELL# 0 U [facility] Immature granulocytes [Presence] in Blood by Automated count 0-[address] [facility] Immature granulocytes [#/volume] in Blood by Automated count 0.1 U 0-0.[address] [facility] Manual Differential panel - Blood Manual Diff Added [facility] ID Date Data Source [id number] 12/30/2019 01:48:[address] [facility] @12/30/19 0130: MANUAL DIFF added. RFLXG = DIFF. @ DID THE CONTROL BAND APPEAR? Y@ DID TH E BACKGROUND CLEAR? Y Special Instructions: Lab may order repe at test if initial test elevatedPhysician If elevated, reflex second test in 4-6 hrs @12/30/19 0130: MANUAL DIFF added. RFLXG = DIFF. Name Value Range Interpretation Code Description Data Adelina rce(s) Supporting Document(s) Choriogonadotropin [Moles/volume] in Serum or Plasma NEGATIVE NEGAT MARY [facility] @Reenter manual test result: NEG@by Melissa Steven at 12/30/19 0148. ID Date Data Source [id number] 12/30/2019 02:19:[address] [facility] @12/30/19 0130: MANUAL DIFF added. RFLXG = DIFF. @ DID THE CONTROL BAND APPEAR? Y@ DID TH E BACKGROUND CLEAR? Y Special Instructions: Lab may order repe at test if initial test elevatedPhysician If elevated, reflex second test in 4-6 hrs @12/30/19 0130: MANUAL DIFF added. RFLXG = DIFF. Name Value Range Interpretation Code Description Data Adelina rce(s) Supporting Document(s) Lactic w Rfx (if elevated) 0.5 mmol/L 0.5-2.2 N [facility] ID Date Data Source [id number] 01/04/2020 01:18:[address] [facility] @12/30/19 0130: MANUAL DIFF added. RFLXG = DIFF. @ DID THE CONTROL BAND APPEAR? Y@ DID TH E BACKGROUND CLEAR? Y Special Instructions: Lab may order repe at test if initial test elevatedPhysician If elevated, reflex second test in 4-6 hrs @12/30/19 0130: MANUAL DIFF added. RFLXG = DIFF. Name Value Range Interpretation Code Description Data Adelina rce(s) Supporting Document(s) Bacteria identified in Blood by Culture [facility] NO GROWTH AFTER 5 DAYS ID Date Data Source [id number] 12/30/2019 01:42:[address] [facility] @12/30/19 0130: MANUAL DIFF added. RFLXG = DIFF. @ DID THE CONTROL BAND APPEAR? Y@ DID TH E BACKGROUND CLEAR? Y Special Instructions: Lab may order repe at test if initial test elevatedPhysician If elevated, reflex second test in 4-6 hrs @12/30/19 0130: MANUAL DIFF added. RFLXG = DIFF. Name Value Range Interpretation Code Description Data Adelina rce(s) Supporting Document(s) Cells counted [#] 100 [facility] Neutrophils [#/volume] in Blood by Manual count 84 % 41-[address] [facility] Lymphocytes [#/volume] in Blood by Manual count 9 % 14-[address] [facility] Monocytes [#/volume] in Blood by Manual count 6 % 4-[address] [facility] Eosinophils [#/volume] in Blood by Manual count 1 % 0-[address] [facility] Platelets [#/volume] in Blood by Estimate APPEARS NORMAL NORMAL [facility] Morphology [Interpretation] in Blood Narrative APPEARS NORMAL NORMAL [facility] ID Date Data Source [id number] 12/30/2019 02:25:[address] [facility] Name Value Range Interpretation Code Description Data Adelina rce(s) Supporting Document(s) Urea nitrogen [Mass/volume] in Serum or Plasma 10 mg/dL 9-[address] [facility] Sodium [Moles/volume] in Serum or Plasma 137 mmol/L 132-[address] [facility] Potassium [Moles/volume] in Serum or Plasma 3.6 mmol/L 3.5-5.5 [facility] Chloride [Moles/volume] in Serum or Plasma 107 mmol/L 99-109 [facility] Carbon dioxide, total [Moles/volume] in Serum or Plasma 23 mmol/L 20 -31 [facility] Anion gap in Serum or Plasma 11 mmol/L 8-16 [facility] Glucose [Mass/volume] in Serum or Plasma 99 mg/dL 74-106 [facility] Creatinine 0.8 mg/dL 0.5-1.1 [facility] Alanine aminotransferase [Enzymatic acti vity/volume] in Serum or Plasma by With P-5'-P 24 U/L 10-49 [facility] ital Aspartate aminotransferase [Enzymatic ac tivity/volume] in Serum or Plasma by With P-5'-P 13 U/L 0-33 [facility] pital Alkaline phosphatase [Enzymatic activity/volume] in Serum or Plasma 74 U/L 50-560 [facility] Calcium [Mass/volume] in Serum or Plasma 9.2 mg/dL 8.5-10.1 [facility] Bilirubin.total [Mass/volume] in Serum or Plasma 0.4 mg/dL 0.3-1.2 [facility] Albumin [Mass/volume] in Serum or Plasma by Bromocresol purple (BCP) dye binding method 3.6 g/dL 3.2-4.8 [facility] ital Protein [Mass/volume] in Serum or Plasma 7.5 g/dL 5.7-8.2 [facility] ID Date Data Source [id number] 12/30/2019 01:07:[address] [facility] ED Physician Documentation NAME: KATELYN GUTIÉRREZ : 2000 AGE: 19 MR#: [id number] SERVICE DATE: 12/30/[address]: Abiodun Sierra MD PRIMARY CARE DR: Jaja High NP ROOM#: HPI (Adult, General) General Chief Complaint: Skin/integument Stated Complaint: FEVER,PAIN AROUND INCISION Time Seen by Provider: 12/30/19 00:55 Source: patient History of Present Illness Narrative: Patient states that on 12/24/2019 she had a diagnostic laparoscopy by Revenue Manager in this hospital. Since then she has increasing pain, redness, swelling at the infraumbilical incision and fever of 101F. No other abd pain/N/V/constipation. Pain is sharp and 6/10. No aggravating or relieving factors for the pain. Allergies/Home Meds Allergies Allergy/AdvReac Type Severity Reaction Status Date / Time amoxicillin [From AUGMENTIN] Allergy Intermediate HIVES Verified 12/30/19 00:43 azithromycin [From Zithromax] Allergy Intermediate Hives Verified 12/30/19 00:43 Home Medications Medication Instructions Recorded Confirmed Last Taken Type levetiracetam 1,000 mg PO BID tab 10/14/15 12/30/19 12/29/19 History sumatriptan succinate 100 mg PO PRN PRN 12/26/18 12/30/19 12/20/19 07:00 History omeprazole 40 mg PO DAILY 07/05/19 12/30/19 12/29/19 History ibuprofen 800 mg PO Q8H PRN #40 tab 12/24/19 12/30/19 Unknown Rx oxycodone-acetaminophen 2 tab PO Q4H PRN #30 tab 12/24/19 12/30/19 12/29/19 14:30 Rx cephalexin [Keflex] 500 mg PO TID #30 cap 12/30/19 Unknown Rx sulfamethoxazole-trimethoprim 1 tab PO Q12HR 10 Days #20 tab 12/30/19 Unknown Rx [Bactrim DS] PMH (from Triage) Patient Medical History PMH Reviewed/Updated as Needed: Yes PMH/PSH from Triage: Medical History (Updated 12/03/19 @ 11:56 by Rangel Porter MD) Acute low back pain (Medical) fracture right ankle growth plate (Medical) Gastroesophageal reflux disease (Medical) Headache (Medical) Migraines Hx MRSA infection (Acute Medical) Z86.14 left wrist fracture (Medical) right elbow fracture (Medical) Seizure disorder (Medical 2014) Surgical History (Updated 09/05/19 @ 15:28 by Rachel Schuster) Appendectomy (Surgical) History of - surgery (Surgical) oral surgery History of - surgery (Surgical 03/31/16) ganglion cyst removal left wrist History of - surgery (Surgical) fx R ankle growth plate History of sinus surgery (Surgical 03/13/17) Hx laparoscopic cholecystectomy (Acute Surgical) Z90.49 jun 27 2019 S/P tonsillectomy and adenoidectomy (Acute Surgical) Z90.89 At age 18 and 15 Female History LMP:: 3 weeks ago : No Lactating mother:: No Hx Drug Resistant Infections Hx MRSA: (Methicillin-resistant Staphylococcus aureus): Yes Hx VRE (Vancomycin-resistant enterococci): No Hx C.Diff: No Hx CRKP: No Hx Other Resistant Infection?: No Isolation: Standard precautions Hx Recent Travel Out of the country within 10 days (where): No Hx Fever: Yes Hx Fever with a rash?: Yes Nurse screening for coronavirus: Recent Travel outside the No country (where) Has patient experienced No coronavirus symptoms Social History Does patient have suicidal/homicidal thoughts or ideation?: No Are you in a relationship with/Does anyone hit you, yell/swear at you, steal from you?: No Substance Use Hx Alcohol Use: No Hx Substance Use: No Hx Substance Use Treatment: No Second Hand Smoke Exposure: No Smoking Status: Never smoker Tobacco Use Hx Chewing Tobacco Use: No Vaccination History Hx/Date of Tetanus, Diphtheria Vaccination: Yes Hx/Date of Influenza Vaccination: Yes Hx/Date of Pneumococcal Vaccination: No Immunizations Up to Date: Yes ROS Review of Systems ROS Narrative: Total of more than 10 systems were reviewed and they were all negative except as mentioned in the history of present illness. Physical Exam General Limitations: no limitations General appearance: alert and in no apparent distress Head Head exam: Present atraumatic and normocephalic Eye Eye exam: Present normal apperance ENT ENT exam: Present other (Normal inspection) Neck Neck exam: Present normal inspection Respiratory Respiratory exam: Present normal lung sounds bilaterally; Absent respiratory distress GI/Abdominal GI/Abdominal exam: Present soft and other (About 1 inch size infraumbilical incision with modearate tenderness and erythema and mild swelling. No pus discharge. No other abd tenderness.); Absent guarding, rebound and organomegaly Extremities Exam Extremities exam: Present normal inspection Neurological Exam Neurological exam: Present alert, oriented X3 and other (No gross neurologic deficits) Skin Skin exam: Present warm and dry Vital Signs Vital Signs: Vital Signs 12/30/19 00:40 Temperature 99.2 F Pulse Rate 103 H Respiratory Rate 20 Blood Pressure 132/78 O2 Sat by Pulse Oximetry 99 MDM (comprehensive) Lab Data Labs: 12/30/19 01:15 12/30/19 01:15 Laboratory Results Last 24 hours 12/30/19 01:15: WBC 15.5 H, RBC 4.77, Hgb 13.8, Hct 40.5, MCV 84.9, MCH 28.9, MCHC 34.1, RDW 13, P ltCount 244, MPV 9.0 L, Immature Gran % (Auto) 0.4, Neut % (Auto) 77.9 H, Lymph % (Auto) 12.1 L, [place] % (Auto) 7.9, Eos % (Auto) 1.6, Baso % (Auto) 0.1 L, Lymph # (Auto) 1.9, Abs Immat Gran (auto) 0.1, Add Manual Diff Manual diff added, Total Counted 100, Neutrophils (Manual) 84 H, Absolute Neutrophils 12.1 H, Lymphocytes (Manual) 9 L, Monocytes (Manual) 6, Monocytes # 1.2, Eosinophils (Manual) 1, Absolute Eosinophils 0.3, Absolute Basophils 0.0, Platelet Estimate Appears normal, RBC Morphology Appears normal 12/30/19 01:15: Lactic Acid 0.5 12/30/19 01:15: Serum , Qual Negative 12/30/19 01:15: Sodium 137, Potassium 3.6, Chloride 107, Carbon Dioxide 23, Anion Gap 11, BUN 10, Creatinine 0.8, GFR Calculation Not Reported, Glucose 99, Calcium 9.2, Total Bilirubin 0.4, AST 13, ALT 24, Alkaline Phosphatase 74, Serum Total Protein 7.5, Albumin 3.6 Medical Decision Making Free Text/Narative:: 1:50A-I discussed the patient with [facility] 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 She recommendedto D/c the patient home on Bactrim and Keflex and have the patient follow up with Dr. Castellano in [facility] in [facility]. Differential Diagnosis Differential Diagnosis: celluilitis Discharge Plan Admission/Discharge Dx Primary DC Diagnosis: Surgical site infection ED Provider: Abiodun Sierra ED Status: Ready for Discharge Time Seen by Provider: 12/30/19 00:55 Triaged At: 12/30/19 00:02 Condition Condition: Stable Discharge Detail Disposition: Home, Self-Care Med Rec New Prescriptions: New sulfamethoxazole-trimethoprim [Bactrim DS] 800-160 mg tablet 1 tab PO Q12HR 10 Days Qty: 20 RF: 0 cephalexin [Keflex] 500 mg capsule 500 mg PO TID Qty: 30 RF: 0 Continued sumatriptan succinate 100 mg tablet 100 mg PO PRN PRN (Reason: Headache) RF: 0 omeprazole 40 m g capsule,delayed release(DR/EC) 40 mg PO DAILY RF: 0 ibuprofen 800 mg Tablet 800 mg PO Q8H PRN (Reason: Pain, Moderate (Score 4-6/10)) Qty: 40 RF: 3 oxycodone-acetaminophen 5-325 mg Tablet 2 tab PO Q4H PRN (Reason: Pain, Severe (Score 7-10/10)) Qty: 30 RF: 0 levetiracetam 1,000 MG tablet 1,000 mg PO BID RF: 0 Discharge Education Printouts: Cellulitis (ED) Follow Up Visit/Referrals: Rangel Porter MD [PHYSICIAN] - 12/30/19 Medications Medication reconciliation performed by provider at discharge: Yes *Discharge Patient* Discharge Orders: Discharge Order (Routine); Ordered 12/30/19 Ordered By: Abiodun Sierra Report Signers: <Electronically signed by Abiodun Sierra MD> Abiodun Sierra MD 12/30/19 0228 Abiodun Sierra MD SIGNATURE DA Report Cosigners: D: EMMANUEL 12/30/19106 T: EMMANUEL 12/30/19106 CC: Jaja High Name Value Range Interpretation Code Description Data Adelina rce(s) Supporting Document(s) ID Date Data Source [id number] 12/24/2019 09:28:[address] [facility] Name: KATELYN GUTIÉRREZ : 2000 Age: 19 MR#: [id number] Admit Date: 12/24/19 Provider: Rangel Porter MD Room #: Consulting Provider: Dictation Date: 12/24/19 Operative Note Operative Report Date of Service Date of service:: 12/24/19 Operative Report Surgeon: Rangel Porter MD Assisting Surgeon: Matias Spicer MD, [facility] Anesthesiologist(s): Francisco Almeida MD Anesthesia Type: General Pre-Operative Diagnosis: Chronic pelvic pain. Post-Operative Diagnosis: same as pre-op plus (Mild endometriosis, pelvic engorgment syndrome.) Findings: 1. Erythematous and vascular engorged pelvis. 2. Left CL cyst. Procedure Procedure: Diagnostic laparoscopy Complications: No Post-Operative Condition: Good EBL(ml):: 5 Operative Treatments Dressings/Drains: Dermabond/Skin Adhesive Specimens: No Specimens Tourniquet:: No Tourniquet used Drains and Output Drain: No Drain Ibarra output (ml):: 130 Intake Fluids intake (ml):: 1,200 Crystalloid intake (ml):: 1,200 Blood Products (ml):: 0 Post Op Orders Post Op Order:: From OR to PACU to ASU when criteria met Operative Narrative Narrative: Procedure explained and discussed with patient, consent signed. Patient then taken to the operating room. Placed under general anesthesia, placed in the dorsolithotomy position. Prepped and draped in the usual sterile manner for an abdominal as well as a vaginal procedure. Examination under general anesthesia revealed a normal-sized uterus, no adnexal masses were palpated. About 15 cc of 0.5% bupivacaine was injected at the infraumbilical border. A transverse incision was made at the infraumbilical border. Carried down to the fascia, 2 sutures of 0 Vicryl were then placed about 2cm apart, and held with 2 hemostatic clamps. An incision was then placed in the fascia, using a Monk trocar and trocar sleeve was introduced into the peritoneal cavity. Laparoscope was then introduced through the trocar sleeve, CO2 gas connected and the peritoneum visualized. A 7 mm transverse incision was made in the left lower quadrant and right lower quadrant. Before each was made, 0.5% bupivacaine was injected into the skin. There was mild erythema all over pelvis, with a mild degree of vascular engorgement, suggestive of amild endometriosis. There was a moderate amount of yellow serous fluid in the pelvic cul-de-sac, the pelvis was then irrigated with saline solution. Laparoscope and blunt manipulators were then removed. Carbon dioxide gas let out. And the skin incisions were closed. Patient was awakened from anesthesia and taken to the recovery room in satisfactory condition. Assessment Plan Impressions/Problems (1) Endometriosis determined by laparoscopy: Status: Acute Code(s): N80.9 - Endometriosis, unspecified (2) Chronic pelvic pain syndrome in female: Status: Acute Code(s): R10.2 - Pelvic and perineal pain; G89.29 - Other chronic pain A P Free Text/Narrative :: 1. Chronic pelvic pain: Diagnosed as mild endometriosis. 2. To place on Lupron IM x6 months. Care plan: Plan of care discussed with patient and or family, Patient encouraged to ask questions about plan, Patient agrees with plan of care and Discharge plan and instructions discussed with patient and or family Dictated by: <Electronically signed by Rangel Porter MD> Rangel Porter MD 12/30/192002 Rangel Porter MD SIGNATURE DA Report Cosigners: D: TOM 12/24/19927 T: TOM 12/24/19927 CC: Name Value Range Interpretation Code Description Data [facility] rce(s) Supporting Document(s) ID Date Data Source [id number] 12/24/2019 07:36:[address] [facility] @12/22/19 1132: Type NC added. RFLXG = T YPE.@ HARRY DATE was changed from 12/22/19 to 12/24/19@ by WILIAM. Old specimen was [id number].@ Originally on account #[id number] Req #[id number] Name Value Range Interpretation Code Description Data Adelina rce(s) Supporting Document(s) Blood Type [facility] ID Date Data Source [id number] 12/24/2019 06:24:00 AM [facility] Special Instructions: pt will stop befor e procedure.@ DID THE CONTROL BAND APPEAR? YES@ DID THE BACKGROUND CLEAR? YES Name Value Range Interpretation Code Description Data Adelina rce(s) Supporting Document(s) Choriogonadotropin [Moles/volume] in Urine NEGATIVE NEGATIVE [facility] @Reenter manual test result: NEGATIVE@by Lucía España at 12/24/19 0624. ID Date Data Source [id number] 12/23/2019 10:50:[address] [facility] Patient Name: KATELYN GUTIÉRREZ OB: 2000 Sex: F Pt Unit #: [id number] Location:[facility] Provider: Visit Date/Time: 12/23/19 Primary Insurance: [employer] [place] Secondary Insurance: [place] ADDENDUM Please note that under assessment and plan, it should read Katelyn is a low risk surgical candidate undergoing low risk surgical procedure under general anesthesia. She is medically optimized for planned surgical intervention. Proceed with surgery at the discretion of the surgeon. COVID screening is negative. Labs per SHOWROOM EXECUTIVE DIRECTOR reviewed, normal. Follow up as needed. The name Sherice was entered in error. <Electronically signed by Jaja High NP> Addendum Signed By: Date/Time: 12/23/19 1407 Intake Vital Signs 12/23/19 10:51 Current Height 5 ft 4 in Current Weight 181 lb Weight Measurement Method Standing Scale BMI 31.0 BP 126/78 Blood Pressure Location Lt brachial Position Sitting Respiration 16 Pulse 76 Pulse Strength Normal Pulse Source Palpation Temp 98.1 F Temp Source Tympanic Pulse Oximetry (%) 98 Oxygen Delivery Method room air Intake Visit Reasons: Pre-operative H P Nurse Note: Pt here for pre-op clearance for exp lap tomorrow. Pt states she has not had any seizureactivity in 2 years. Tobacco Wetter Required: No Accompanied by: Self / Same as Patient Is patient in pain?: No Allergies amoxicillin [From AUGMENTIN] Allergy (Intermediate, Verified 12/03/19 10:43) HIVES azithromycin [From Zithromax] Allergy (Intermediate, Verified 12/03/19 10:43) Hives Is last menstrual period known: No Post menopausal: No Patient : No Fall Risk History of falls: No Ambulatory Aid:: None Gait/Transferring:: Normal HIV Testing Offer - ages 13-64 HIV testing Offer: Yes Requirement for HIV testing offer been met?: Declines today. Pretest education received and acknowledged SBIRT Annual Questionnaire Are you currently in recovery for alcohol or substance use?: No How many times in the past year have you had 4 or more drinks in a day?: None How many times in the past year have you used a recreational drug or used a prescription medication f or nonmedical reasons?: None Do you need a note to return Do you need a note to return to daycare/school/sports/work: No Coronavirus Screening Screening Have you traveled outside of [facility] or [facility] in the last 14 days.: No Has patient experienced coronavirus symptoms: No PFSH Medical History Acute low back pain fracture right ankle growth plate Gastroesophageal reflux disease Headache Hx MRSA infection (Acute) left wrist fracture right elbow fracture Seizure disorder ( 2015) Surgical History Appendectomy History of - surgery History of - surgery (03/31/16) History of - surgery History of sinus surgery (03/13/17) Hx laparoscopic cholecystectomy (Acute) S/P tonsillectomy and adenoidectomy (Acute) Family History Mother Seizure disorder Social History (Reviewed 0 12/23/19 @ 11:07 by Jaja High NP) Does the Patient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 completed Never s [facility] Smoking 12/30/2019 01:13:00 AM EDT Never smoker completed Never s [facility] Smoking 12/30/2019 01:13:00 AM EDT Never smoker completed Never s [facility] 12/23/2019 10:59:06 AM EDT Never smoker completed Never s [facility] 12/23/2019 10:59:06 AM EDT Never smoker completed Never s [facility] 12/23/2019 10:59:06 AM EDT Never smoker completed Never s [facility] 12/23/2019 10:59:06 AM EDT Never smoker completed Never s [facility] 12/23/2019 10:59:06 AM EDT Never smoker completed Never s [facility] 12/23/2019 10:59:06 AM EDT Never smoker completed Never s [facility] 12/23/2019 10:59:06 AM EDT Never smoker completed Never s [facility] 12/23/2019 10:59:06 AM EDT Never smoker completed Never s [facility] 12/23/2019 10:59:06 AM EDT Never smoker completed Never s [facility] 12/23/2019 10:59:06 AM EDT Never smoker completed Never s [facility] 12/23/2019 10:59:06 AM EDT Never smoker completed Never s [facility] 12/23/2019 10:59:06 AM EDT Never smoker completed Never s [facility] 12/23/2019 10:59:06 AM EDT Never smoker completed Never s [facility] Smoking 12/23/2019 10:59:00 AM EDT Never smoker completed Never s [facility] Smoking 12/23/2019 10:59:00 AM EDT Never smoker completed Never s [facility] 12/23/2019 09:15:00 AM EDT Never smoker completed Never s [facility] 12/23/2019 09:15:00 AM EDT Never smoker completed Never s [facility] 12/23/2019 09:15:00 AM EDT Never smoker completed Never s [facility] 12/23/2019 09:15:00 AM EDT Never smoker completed Never s [facility] 12/23/2019 09:15:00 AM EDT Never smoker completed Never s [facility] 12/23/2019 09:15:00 AM EDT Never smoker completed Never s [facility] 12/23/2019 09:15:00 AM EDT Never smoker completed Never s [facility] 12/23/2019 09:15:00 AM EDT Never smoker completed Never s [facility] 12/23/2019 09:15:00 AM EDT Never smoker completed Never s [facility] 12/23/2019 09:15:00 AM EDT Never smoker completed Never s [facility] 12/23/2019 09:15:00 AM EDT Never smoker completed Never s [facility] 12/23/2019 09:15:00 AM EDT Never smoker completed Never s [facility] 12/23/2019 09:15:00 AM EDT No completed No [facility] 12/22/2019 09:35:00 AM EDT No completed No [facility] 10/08/2019 03:13:00 PM EST Never smoker completed Never s [facility] 10/08/2019 03:13:00 PM EST Never smoker completed Never s [facility] 10/08/2019 03:13:00 PM EST Never smoker completed Never s [facility] 10/08/2019 03:13:00 PM EST Never smoker completed Never s [facility] 10/08/2019 03:13:00 PM EST Never smoker completed Never s [facility] 10/08/2019 03:13:00 PM EST Never smoker completed Never s [facility] 10/08/2019 03:13:00 PM EST Never smoker completed Never s [facility] 10/08/2019 03:13:00 PM EST Never smoker completed Never s [facility] 10/08/2019 03:13:00 PM EST Never smoker completed Never s [facility] 10/08/2019 03:13:00 PM EST Never smoker completed Never s [facility] 10/08/2019 03:13:00 PM EST Never smoker completed Never s [facility] 10/08/2019 03:13:00 PM EST Never smoker completed Never s [facility] 10/08/2019 03:13:00 PM EST Never smoker completed Never s [facility] 10/08/2019 03:13:00 PM EST Never smoker completed Never s [facility] Smoking 10/08/2019 03:13:00 PM EST Never smoker completed Never s [facility] 10/08/2019 03:13:00 PM EST Never smoker completed Never s [facility] Smoking 10/08/2019 03:13:00 PM EST Never smoker completed Never s [facility] 10/08/2019 03:13:00 PM EST Never smoker completed Never s [facility] Smoking 10/08/2019 03:13:00 PM EST Never smoker completed Never s [facility] 09/18/2019 08:44:00 AM EST No completed No [facility] 09/18/2019 08:44:00 AM EST No completed No [facility] 08/11/2019 01:55:22 PM EST Never smoker completed Never s [facility] 08/11/2019 01:55:22 PM EST Never smoker completed Never s [facility] 08/11/2019 01:55:22 PM EST Never smoker completed Never s [facility] 08/11/2019 01:55:22 PM EST Never smoker completed Never s [facility] 08/11/2019 01:55:22 PM EST Never smoker completed Never s [facility] 08/11/2019 01:55:22 PM EST Never smoker completed Never s [facility] 08/11/2019 01:55:22 PM EST Never smoker completed Never s [facility] 08/11/2019 01:55:22 PM EST Never smoker completed Never s [facility] 08/11/2019 01:55:22 PM EST Never smoker completed Never s [facility] 08/11/2019 01:55:22 PM EST Never smoker completed Never s [facility] 08/11/2019 01:55:22 PM EST Never smoker completed Never s [facility] 08/11/2019 01:55:22 PM EST Never smoker completed Never s [facility] 08/11/2019 01:55:22 PM EST Never smoker completed Never s [facility] 08/11/2019 01:55:22 PM EST Never smoker completed Never s [facility] 08/11/2019 01:55:22 PM EST Never smoker completed Never s [facility] 08/11/2019 01:55:22 PM EST Never smoker completed Never s [facility] 08/11/2019 01:55:22 PM EST Never smoker completed Never s [facility] 08/11/2019 01:55:22 PM EST Never smoker completed Never s [facility] 08/11/2019 01:55:22 PM EST Never smoker completed Never s [facility] Smoking 08/11/2019 01:55:00 PM EST Never smoker completed Never s [facility] Smoking 08/11/2019 01:55:00 PM EST Never smoker completed Never [facility] Smoking 08/11/2019 01:55:00 PM EST Never smoker completed Never [facility] Vital Signs ID Date Data Source UNK Name Value Range Interpretation Code Description Data Source(s) Systolic blood pressure 120 mm[Hg] 120 mm[Hg] [facility] Diastolic blood pressure 74 mm[Hg] 74 mm[Hg] [facility] ([facility]) Body height 64 [in_i] 64 [in_i] [facility] ([facility]) 5'4" Body weight 193.00 [lb_av] 193.00 [lb_av] [facility] Body mass index (BMI) [Ratio] 33.1 kg/m2 33.1 k g/m2 [facility] ([facility]) [place] body weight 120 [lb_av] 120 [lb_av] [facility] Body weight 87.545 kg 87.545 kg [facility] ([facility]) Body surface area Derived from formula 1.93 m2 1.93 m2 [facility] ([facility]) Oxygen saturation in Arterial blood by Pulse oximetry 99 % 99 % [facility]) PhenX - pain, abdominal - type and intensity protocol 7 7 [facility] ([facility]) Body temperature 97.9 [degF] 97.9 [degF] [facility] ([facility]) Respiratory rate 22 /min 22 /min [facility] ([place] [employer] [facility]) Heart rate 71 /min 71 /min [facility] ([facility] [employer] [facility]) Oxygen saturation in Arterial blood by Pulse oximetry 97 % 97 % [facility] ([facility]) Body temperature 100 [degF] 100 [degF] [facility] ([place] [employer] [facility]) Respiratory rate 20 /min 20 /min [facility] ([place] [employer] [facility]) Heart rate rhythm 1 1 [place] Y ([facility]) Heart rate 119 /min 119 /min [facility] ([facility] [employer] [facility]) Diastolic blood pressure 70 mm[Hg] 70 mm[Hg] [facility] ([facility]) Systolic blood pressure 110 mm[Hg] 110 mm[Hg] [facility] TELLO ([facility]) Patient Treatment Plan of Care Planned Activity Planned Date Details Description Data Source (s) Prednisone 20 MG Oral Tablet 10/13/2019 12:00:00 AM JORDAN VALENZUELA ([facility])
[2020-09-24 14:50] VITALS: BP 116/58
--- NOTE | 2020-09-24 14:57 | ROOR ---
Patient Name: Katelyn Howard Procedure Date: 09/24/2020 2:06 PM Date of : 2000 Age: 20 Room: [facility] Gender: Female Note Status: Finalized Procedure: Upper GI endoscopy Indications: Epigastric abdominal pain, Dysphagia Providers: Chidi Mathis MD Referring MD: Jaja High Requesting Provider: Medicines: Monitored Anesthesia Care Complications: No immediate complications. Procedure: Pre-Anesthesia Assessment: - Prior to the procedure, a History and Physical was performed, and patient medications and allergies were reviewed. The patient is competent. The risks and benefits of the procedure and the sedation options and risks were discussed with the patient. All questions were answered and informed consent was obtained. Patient identification and proposed procedure were verified by the physician, the nurse and the anesthesiologist in the procedure room. Mental Status Examination: alert and oriented. Airway Examination: normal oropharyngeal airway and neck mobility. Respiratory Examination: clear to auscultation. CV Examination: normal. Prophylactic Antibiotics: The patient does not require prophylactic antibiotics. Prior Anticoagulants: The patient has taken no previous anticoagulant or antiplatelet agents. ASA Grade Assessment: II - A patient with mild systemic disease. After reviewing the risks and benefits, the patient was deemed in satisfactory condition to undergo the procedure. The anesthesia plan was to use monitored anesthesia care (MAC). Immediately prior to administration of medications, the patient was re-assessed for adequacy to receive sedatives. The heart rate, respiratory rate, oxygen saturations, blood pressure, adequacy of pulmonary ventilation, and response to care were monitored throughout the procedure. The physical status of the patient was re-assessed after the procedure. The Endoscope was introduced through the mouth, and advanced to the second part of duodenum. The upper GI endoscopy was accomplished without difficulty. The patient tolerated the procedure well. Findings: The examined esophagus was normal. The Z-line was regular and was found in the distal esophagus. Scattered mild inflammation characterized by erythema was found in the gastric antrum. Biopsies were taken with a cold forceps for Helicobacter pylori testing. Verification of patient identification for the specimen was done by the physician and nurse using the patient's name, date and medical record number. Estimated blood loss was minimal. The duodenal bulb and second portion of the duodenum were normal. Biopsies for histology were taken with a cold forceps for evaluation of celiac disease. Impression: - Normal esophagus. - Z-line regular, in the distal esophagus. - Gastritis. Biopsied. - Normal duodenal bulb and second portion of the duodenum. Biopsied. Recommendation: - Patient has a contact number available for emergencies. The signs and symptoms of potential delayed complications were discussed with the patient. Return to normal activities tomorrow. Written discharge instructions were provided to the patient. - High fiber diet. - Continue present medications. 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 - Await pathology results. - Telephone GI clinic for pathology results in 2 weeks. - Return to primary care physician. Procedure Code(s): --- Professional --- 58824, Esophagogastroduodenoscopy, flexible, transoral; with biopsy, single or multiple Diagnosis Code(s): --- Professional --- K29.70, Gastritis, unspecified, without bleeding R10.13, Epigastric pain R13.10, Dysphagia, unspecified CPT copyright 2019 [employer]. All rights reserved. The codes documented in this report are preliminary and upon investment director review may be revised to meet current compliance requirements. Chidi Mathis MD Chidi Mathis MD 09/24/2020 2:57:28 PM Electronically signed by Chidi Mathis MD Number of Addenda: 0 Note Initiated On: 09/24/2020 2:06 PM Estimated Blood Loss: Estimated blood loss was minimal.
== END 2020-09-24 14:52 | disposition home or self-care (01) ==
LOC: M OPP 12:53
PROVIDERS: ATTEND Internal Medicine Gastroenterology
DX: R10.13 Epigastric pain (principal); R13.10 Dysphagia, unspecified; D13.1 Benign neoplasm of stomach; D13.39 Benign neoplasm of other parts of small intestine; K29.70 Gastritis, unspecified, without bleeding; G43.909 Migraine, unspecified, not intractable, without status migrainosus; G40.909 Epilepsy, unspecified, not intractable, without status epilepticus; Z86.14 Personal history of Methicillin resistant Staphylococcus aureus infection; Z88.1 Allergy status to other antibiotic agents; Z88.8 Allergy status to other drugs, medicaments and biological substances; Z79.899 Other long term (current) drug therapy
CPT/HCPCS: 43239; 88305; J3010

== ENCOUNTER → 2024-10-12 | Outpatient (REF) ==
[~2024-10-12] MED LIST changes: -LIDOCAINE 2% 100MG/5ML SDV (FOR ANES.) As Ordered ONE; -NS 1,000 ML IV ONE; -fentaNYL 100 MCG/2 ML INJECTION (J3010) As Ordered ONE; -propofoL 200 MG/20 ML VIAL As Ordered ONE
== END ==
LOC: M LAB LCGH 10:01
DX: Z00.00 Encounter for general adult medical examination without abnormal findings (principal)